=== PATIENT | male | born 1935 | race Caucasian/White ===

== ENCOUNTER 2017-05-31 11:13 | Inpatient (IN) ==
[2017-05-31 12:16] LABS: Basophils % 0.3 % (0.0-0.8); Eosinophils # 0.2 10*3/uL (0.0-0.87); Eosinophils % 2.7 % (0.00-10.9); Hematocrit 18.1 VOL% (42.0-52.0); Immature Granulocytes Absolute 0.12 #; Lymphocytes # 0.7 10*3/uL (1.4-4.0); Lymphocytes % 11.9 % (21.2-54.2); Mean Corpuscular Hemoglobin 32 PG (27-34); Mean Corpuscular Volume 99.5 FL (87-102); Mean Platelet Volume 11.2 FL (9.6-12.0); Monocytes # 0.6 10*3/uL (0.11-0.8); Monocytes % 9.7 % (1.7-12.7); Neutrophils # 4.3 10*3/uL (1.4-7.4); Neutrophils % 73.4 % (38.7-73.9); Platelet Count 102 T/CUMM (130-400); Red Blood Count 1.82 MC/CUMM (3.8-5.5); Red Cell Distribution Width 17.3 % (9.3-17.3); White Blood Count 5.9 T/CUMM (4-12)
[2017-05-31 12:43] LABS: Alanine Aminotransferase 37 U/L (16-61); Albumin 3.7 G/DL (3.4-5.0); Alkaline Phosphatase 99 U/L (45-117); Aspartate Amino Transferase 30 U/L (0-37); Bilirubin,Total < 0.39 MG/DL (0.2-1.0); Blood Urea Nitrogen 99 MG/DL (7-18); Calcium 7.1 MG/DL (8.5-10.1); Glucose 134 MG/DL (74-106); Osmolality,Calculated 315.1 MOS/KG (273-304); Potassium 4.4 MMOL/L (3.5-5.1); Sodium 142 MMOL/L (136-145); Total Protein 7.1 G/DL (6.4-8.3)
[2017-05-31 12:47] LABS: Hemoglobin 5.8 GM/DL (14.0-18.0)
[2017-05-31] MEDS ORDERED: PANTOPRAZOLE 40 MG VIAL IV STA (12:59)
[2017-05-31] MEDS ORDERED: SODIUM CHLORIDE 0.9% 1,000 ML IV SCH ×2 (13:00→14:00)
[2017-05-31] MEDS ORDERED: PANTOPRAZOLE 40 MG VIAL IV ONE (13:10)
[2017-05-31 13:29] LABS: Giant Platelets Few; Hypochromasia 1+; Ovalocytes Slight; Platelet Estimate Decreased
[2017-05-31] MEDS ORDERED: ONDANSETRON 4 MG/2 ML VIAL IV PRN (13:44)
[2017-05-31] MEDS ORDERED: diphenhydrAMINE CAP 25 MG CAPSULE PO PRN (13:44)
[2017-05-31] MEDS ORDERED: DOCUSATE SODIUM 100 MG CAPSULE PO PRN (13:44)
[2017-05-31] MEDS ORDERED: guaiFENesin/DM ER 600-30 MG TABLET PO PRN (13:44)
[2017-05-31] MEDS: PANTOPRAZOLE 40 MG VIAL IV SCH ×2 (14:00→20:47)
[2017-05-31] MEDS ORDERED: SODIUM CHLORIDE 0.9% 1,000 ML IV PRN (14:15)
[2017-05-31] MEDS ORDERED: SODIUM BICARBONATE 50 MEQ/50 ML VIAL IV ONE (16:15)
[2017-05-31 16:27] LABS: Fibrinogen Quant Value 311 MG% (200-400); INR 1.1; PT Patient Result 11.4 SECS; Partial Thromboplastin Time 36.4 SECS (0-40)
[2017-05-31 16:30] LABS: Basophils % 0.4 % (0.0-0.8); Eosinophils # 0.1 10*3/uL (0.0-0.87); Immature Granulocytes % 2.2 %; Immature Granulocytes Absolute 0.12 #; Lymphocytes # 0.7 10*3/uL (1.4-4.0); Lymphocytes % 12.6 % (21.2-54.2); Mean Corpuscular HGB Conc 31.3 GM/DL (32-36); Mean Corpuscular Hemoglobin 32 PG (27-34); Mean Corpuscular Volume 101.9 FL (87-102); Mean Platelet Volume 11.2 FL (9.6-12.0); Monocytes # 0.6 10*3/uL (0.11-0.8); Monocytes % 10.2 % (1.7-12.7); Neutrophils # 3.9 10*3/uL (1.4-7.4); Neutrophils % 72.6 % (38.7-73.9); Red Cell Distribution Width 17.7 % (9.3-17.3); White Blood Count 5.4 T/CUMM (4-12)
[2017-05-31] MEDS ORDERED: SODIUM BICARB INJ 100 MEQ in SODIUM CHLORIDE 0.45% 1,000 ML IV SCH (16:30)
[2017-05-31 16:31] LABS: Platelet Count 94 T/CUMM (130-400)
[2017-05-31 16:32] LABS: Hemoglobin 5.1 GM/DL (14.0-18.0)
[2017-05-31 16:33] LABS: Hematocrit 16.3 VOL% (42.0-52.0)
[2017-05-31 16:52] LABS: Anisocytosis 1+; Eosinophils 1 % (0-10); Lymphocytes 14 % (20-55); Schistocytes Few; Segmented Neutrophils 76 % (50-85); Total Cells Counted 100
[2017-05-31 16:53] LABS: Burr Cells Few; Elliptocytes Few; Platelet Estimate Decreased; Tear Drop Cells Few
[2017-05-31 16:54] LABS: Hypochromasia 2+; Poikilocytosis 1+
[2017-05-31 17:35] LABS: Sedimentation Rate-Westergren 87 MM/HR (0-20)
[2017-05-31 19:08] LABS: Folate 7.1 NG/ML (5.4-24.0); Vitamin B12 355 PG/ML (211-911)
[2017-05-31 22:00] LABS: Apearance,Urine Slightly Cloudy (Clear); Glucose,Urine (UA) 50 mg/dL (Negative); Ketones,Urine Negative (Negative); Protein,Urine 100 MG/DL; Urine Color Straw (Yellow)
[2017-05-31 22:01] LABS: Bilirubin,Urine Negative (Negative); Blood, Urine Large mg/dL (Negative); Nitrite,Urine Negative (Negative); Squamous Epithelial Cell,Urine Rare /HPF (0-10); Urine Urobilinogen 0.2 EU/DL (0.2-1.0); WBC,Urine 25-30 /HPF (0-6)
[2017-05-31 22:02] LABS: Bacteria,Urine Few /HPF (Few); Mucus,Urine Rare /LPF (Occasional)
[2017-06-01] MEDS: SODIUM BICARB INJ 150 MEQ in DEXTROSE 5% 1,000 ML IV SCH ×3 (01:46→08:41)
[2017-06-01 06:34] LABS: Basophils % 0.3 % (0.0-0.8); Eosinophils % 0.3 % (0.00-10.9); Hematocrit 23.6 VOL% (42.0-52.0); Hemoglobin 7.9 GM/DL (14.0-18.0); Immature Granulocytes % 1.2 %; Immature Granulocytes Absolute 0.08 #; Lymphocytes # 0.4 10*3/uL (1.4-4.0); Lymphocytes % 6.4 % (21.2-54.2); Mean Corpuscular HGB Conc 33.5 GM/DL (32-36); Mean Corpuscular Hemoglobin 31 PG (27-34); Mean Corpuscular Volume 92.2 FL (87-102); Mean Platelet Volume 10.8 FL (9.6-12.0); Monocytes # 0.6 10*3/uL (0.11-0.8); Monocytes % 8.8 % (1.7-12.7); Neutrophils # 5.6 10*3/uL (1.4-7.4); Red Blood Count 2.56 MC/CUMM (3.8-5.5); Red Cell Distribution Width 18.2 % (9.3-17.3); White Blood Count 6.7 T/CUMM (4-12)
[2017-06-01 06:42] LABS: Platelet Count 91 T/CUMM (130-400)
[2017-06-01 06:54] LABS: Hypochromasia 1+; Microcytosis 1+; Platelet Estimate Decreased; Spherocytes Slight
[2017-06-01 06:55] LABS: Ovalocytes Slight; Tear Drop Cells Slight
[2017-06-01 07:13] LABS: Albumin 3.7 G/DL (3.4-5.0); Bilirubin,Total 1.5 MG/DL (0.2-1.0); Calcium 7.3 MG/DL (8.5-10.1); Osmolality,Calculated 314.8 MOS/KG (273-304); Potassium 4.1 MMOL/L (3.5-5.1); Total Protein 6.6 G/DL (6.4-8.3)
[2017-06-01] MEDS: PANTOPRAZOLE 40 MG VIAL IV SCH ×2 (09:12→21:16)
[2017-06-01] MEDS ORDERED: LEVOFLOXACIN INJ 500 MG in PREMIX 1 EACH IV ONE (10:00)
[2017-06-01] MEDS: ALBUTEROL/IPRATROPIUM 3 ML NEB RESP TX SCH ×2 (11:33→19:54)
[2017-06-01] MEDS: MONTELUKAST 10 MG TABLET PO SCH (12:03)
[2017-06-02 05:25] LABS: Basophils % 0.2 % (0.0-0.8); Hematocrit 21.3 VOL% (42.0-52.0); Hemoglobin 7.1 GM/DL (14.0-18.0); Immature Granulocytes % 1.3 %; Immature Granulocytes Absolute 0.08 #; Lymphocytes # 0.4 10*3/uL (1.4-4.0); Lymphocytes % 6.2 % (21.2-54.2); Mean Corpuscular HGB Conc 33.3 GM/DL (32-36); Mean Corpuscular Hemoglobin 31 PG (27-34); Mean Corpuscular Volume 92.2 FL (87-102); Mean Platelet Volume 11.4 FL (9.6-12.0); Monocytes # 0.8 10*3/uL (0.11-0.8); Monocytes % 12.6 % (1.7-12.7); Neutrophils # 4.7 10*3/uL (1.4-7.4); Neutrophils % 79.7 % (38.7-73.9); Red Blood Count 2.31 MC/CUMM (3.8-5.5)
[2017-06-02 05:27] LABS: Platelet Count 85 T/CUMM (130-400)
[2017-06-02 05:32] LABS: INR 1.2; PT Patient Result 12.5 SECS
[2017-06-02 05:44] LABS: Elliptocytes Few; Hypochromasia 1+
[2017-06-02 05:45] LABS: Microcytosis Slight; Platelet Estimate Decreased
[2017-06-02 06:20] LABS: Osmolality,Calculated 319.4 MOS/KG (273-304); Potassium 3.9 MMOL/L (3.5-5.1)
[2017-06-02] MEDS: ALBUTEROL/IPRATROPIUM 3 ML NEB RESP TX SCH ×4 (07:17→19:18)
[2017-06-02] MEDS: PANTOPRAZOLE 40 MG VIAL IV SCH (09:27)
[2017-06-02] MEDS: MONTELUKAST 10 MG TABLET PO SCH (09:30)
[2017-06-02] MEDS ORDERED: SODIUM CHLORIDE 0.9% 1,000 ML IV PRN (12:12)
[2017-06-02] MEDS ORDERED: ZINC OXIDE PASTE 113 GM TUBE TOP PRN (13:13)
[2017-06-02] MEDS: ACETAMINOPHEN 325 MG TABLET PO PRN (16:21)
[2017-06-03] MEDS: PANTOPRAZOLE 40 MG VIAL IV SCH ×3 (00:07→21:15)
[2017-06-03] MEDS: ACETAMINOPHEN 325 MG TABLET PO PRN (00:09)
[2017-06-03] MEDS: ALBUTEROL/IPRATROPIUM 3 ML NEB RESP TX SCH ×4 (02:40→21:06)
[2017-06-03 06:32] LABS: Basophils % 0.3 % (0.0-0.8); Hematocrit 25.6 VOL% (42.0-52.0); Hemoglobin 8.4 GM/DL (14.0-18.0); Immature Granulocytes % 1.4 %; Lymphocytes # 0.5 10*3/uL (1.4-4.0); Lymphocytes % 6.4 % (21.2-54.2); Mean Corpuscular HGB Conc 32.8 GM/DL (32-36); Mean Corpuscular Hemoglobin 31 PG (27-34); Mean Corpuscular Volume 94.5 FL (87-102); Monocytes # 0.9 10*3/uL (0.11-0.8); Monocytes % 12.7 % (1.7-12.7); Neutrophils # 5.5 10*3/uL (1.4-7.4); Neutrophils % 79.2 % (38.7-73.9); Platelet Count 85 T/CUMM (130-400); Red Blood Count 2.71 MC/CUMM (3.8-5.5); Red Cell Distribution Width 18.3 % (9.3-17.3)
[2017-06-03 06:51] LABS: Giant Platelets Few; Hypochromasia 1+; Ovalocytes Slight; Platelet Estimate Decreased
[2017-06-03 06:52] LABS: Burr Cells Slight; Microcytosis Slight
[2017-06-03 07:02] LABS: Calcium 7.2 MG/DL (8.5-10.1); Osmolality,Calculated 321.4 MOS/KG (273-304); Potassium 3.7 MMOL/L (3.5-5.1)
[2017-06-03] MEDS ORDERED: ACETAMINOPHEN 1,000 MG/100 ML VIAL IV ONE (08:04)
[2017-06-03] MEDS ORDERED: AMINOPHYLLINE 250 MG in SODIUM CHLORIDE 0.9% 100 ML IV ONE (08:50)
[2017-06-03] MEDS: MONTELUKAST 10 MG TABLET PO SCH (12:35)
[2017-06-03] MEDS: LEVOFLOXACIN INJ 250 MG in PREMIX 1 EACH IV SCH (12:42)
[2017-06-03] MEDS ORDERED: ALBUTEROL 2.5 MG/3 ML NEB RESP TX PRN (13:42)
[2017-06-03] MEDS ORDERED: ALBUTEROL 2.5 MG/3 ML NEB RESP TX ONE (13:42)
[2017-06-03] MEDS: AMINOPHYLLINE 500 MG in SODIUM CHLORIDE 0.9% 480 ML IV SCH (13:53)
[2017-06-03] MEDS: DILTIAZEM CD 120 MG CAPSULE PO SCH (16:35)
[2017-06-03 17:22] LABS: Hepatitis A Ab IgM Quant 0.13 Index; Hepatitis A Ab IgM Result Negative (Negative); Hepatitis B Core IgM Quant 0.11 Index; Hepatitis B Core IgM Result Negative (Negative); Hepatitis B Surface Ag Quant < 0.10 Index; Hepatitis B Surface Ag Result Negative (Negative); Hepatitis C Virus Ab Quant 0.05 Index; Hepatitis C Virus Ab Result Negative (Negative)
[2017-06-03] MEDS: ZIPRASIDONE 20 MG/1 ML VIAL IM PRN (23:37)
[2017-06-04] MEDS ORDERED: ACETAMINOPHEN 650 MG SUPP RECTAL PRN (03:18)
[2017-06-04 06:07] LABS: Basophils % 0.3 % (0.0-0.8); Eosinophils % 0.2 % (0.00-10.9); Hematocrit 25.7 VOL% (42.0-52.0); Hemoglobin 8.6 GM/DL (14.0-18.0); Immature Granulocytes Absolute 0.06 #; Lymphocytes # 0.4 10*3/uL (1.4-4.0); Lymphocytes % 7.1 % (21.2-54.2); Mean Corpuscular HGB Conc 33.5 GM/DL (32-36); Mean Corpuscular Hemoglobin 31 PG (27-34); Mean Corpuscular Volume 91.8 FL (87-102); Mean Platelet Volume 11.5 FL (9.6-12.0); Monocytes # 0.6 10*3/uL (0.11-0.8); Monocytes % 9.6 % (1.7-12.7); Neutrophils # 4.9 10*3/uL (1.4-7.4); Neutrophils % 81.8 % (38.7-73.9); Red Cell Distribution Width 18.2 % (9.3-17.3)
[2017-06-04 06:11] LABS: Platelet Count 83 T/CUMM (130-400)
[2017-06-04 06:37] LABS: Burr Cells Slight; Giant Platelets Few; Hypochromasia 1+; Microcytosis Slight; Ovalocytes Slight; Platelet Estimate Decreased
[2017-06-04 06:40] LABS: Osmolality,Calculated 301.7 MOS/KG (273-304); Potassium 3.4 MMOL/L (3.5-5.1)
[2017-06-04] MEDS: ALBUTEROL/IPRATROPIUM 3 ML NEB RESP TX SCH ×4 (07:39→20:15)
[2017-06-04] MEDS: PANTOPRAZOLE 40 MG VIAL IV SCH ×2 (09:02→20:38)
[2017-06-04] MEDS: DILTIAZEM CD 120 MG CAPSULE PO SCH ×2 (09:23→20:40)
[2017-06-04] MEDS ORDERED: DILTIAZEM 50 MG/10 ML VIAL IV ONE (09:29)
[2017-06-04] MEDS ORDERED: DILTIAZEM 90 MG TABLET PO ONE (10:12)
[2017-06-04] MEDS ORDERED: LIDOCAINE 2% 5 ML VIAL ONE (11:45)
[2017-06-04] MEDS ORDERED: ETOMIDATE 20 MG/10 ML VIAL IV ONE (11:45)
[2017-06-04] MEDS: MONTELUKAST 10 MG TABLET PO SCH (11:54)
[2017-06-04] MEDS: ATORVASTATIN 10 MG TABLET PO SCH (11:54)
[2017-06-04 14:33] LABS: Procalcitonin, S 1.5 ng/mL (<=0.15)
[2017-06-04] MEDS: ZIPRASIDONE 20 MG/1 ML VIAL IM PRN (18:04)
[2017-06-05] MEDS: ALBUTEROL/IPRATROPIUM 3 ML NEB RESP TX SCH ×4 (01:42→20:22)
[2017-06-05] MEDS: AMINOPHYLLINE 500 MG in SODIUM CHLORIDE 0.9% 480 ML IV SCH ×2 (04:44→13:21)
[2017-06-05] MEDS: ZIPRASIDONE 20 MG/1 ML VIAL IM PRN ×2 (06:05→21:11)
[2017-06-05 06:33] LABS: Basophils % 0.5 % (0.0-0.8); Eosinophils % 0.6 % (0.00-10.9); Hematocrit 26.5 VOL% (42.0-52.0); Hemoglobin 8.7 GM/DL (14.0-18.0); Immature Granulocytes % 1.3 %; Immature Granulocytes Absolute 0.08 #; Lymphocytes # 0.7 10*3/uL (1.4-4.0); Lymphocytes % 10.7 % (21.2-54.2); Mean Corpuscular HGB Conc 32.8 GM/DL (32-36); Mean Corpuscular Hemoglobin 31 PG (27-34); Mean Corpuscular Volume 93.3 FL (87-102); Mean Platelet Volume 11.1 FL (9.6-12.0); Monocytes # 0.8 10*3/uL (0.11-0.8); Monocytes % 12.7 % (1.7-12.7); Neutrophils # 4.7 10*3/uL (1.4-7.4); Neutrophils % 74.2 % (38.7-73.9); Platelet Count 85 T/CUMM (130-400); Red Blood Count 2.84 MC/CUMM (3.8-5.5); Red Cell Distribution Width 18.1 % (9.3-17.3); White Blood Count 6.4 T/CUMM (4-12)
[2017-06-05 06:59] LABS: Calcium 7.9 MG/DL (8.5-10.1); Osmolality,Calculated 291.1 MOS/KG (273-304); Potassium 3.5 MMOL/L (3.5-5.1)
[2017-06-05 07:05] LABS: Hypochromasia 2+; Microcytosis 2+
[2017-06-05] MEDS: DILTIAZEM CD 120 MG CAPSULE PO SCH ×3 (08:20→20:18)
[2017-06-05] MEDS: ATORVASTATIN 10 MG TABLET PO SCH (08:21)
[2017-06-05] MEDS: LEVOFLOXACIN INJ 250 MG in PREMIX 1 EACH IV SCH (08:21)
[2017-06-05] MEDS: PANTOPRAZOLE 40 MG VIAL IV SCH ×2 (08:21→20:53)
[2017-06-05] MEDS: MONTELUKAST 10 MG TABLET PO SCH (08:21)
[2017-06-05] MEDS ORDERED: HEPARIN 10,000 UNIT/10 ML VIAL IV PRN (13:46)
[2017-06-05] MEDS: cefTAZidime 500 MG in SYRINGE 1 EACH IV SCH (17:30)
[2017-06-05 23:03] LABS: Calcium 7.8 MG/DL (8.5-10.1); Osmolality,Calculated 280.5 MOS/KG (273-304); Potassium 3.3 MMOL/L (3.5-5.1)
[2017-06-06] MEDS ORDERED: POTASSIUM CHLORIDE 20 MEQ/15 ML UDCUP PO PRN (00:02)
[2017-06-06] MEDS: ALBUTEROL/IPRATROPIUM 3 ML NEB RESP TX SCH ×4 (01:00→20:15)
[2017-06-06 04:12] LABS: Basophils % 0.4 % (0.0-0.8); Eosinophils # 0.2 10*3/uL (0.0-0.87); Eosinophils % 3.2 % (0.00-10.9); Hematocrit 25.4 VOL% (42.0-52.0); Hemoglobin 8.5 GM/DL (14.0-18.0); Immature Granulocytes % 0.7 %; Immature Granulocytes Absolute 0.04 #; Lymphocytes # 0.7 10*3/uL (1.4-4.0); Lymphocytes % 11.6 % (21.2-54.2); Mean Corpuscular HGB Conc 33.5 GM/DL (32-36); Mean Corpuscular Hemoglobin 30 PG (27-34); Mean Corpuscular Volume 90.7 FL (87-102); Mean Platelet Volume 10.3 FL (9.6-12.0); Monocytes # 0.7 10*3/uL (0.11-0.8); Neutrophils # 4.1 10*3/uL (1.4-7.4); Neutrophils % 72.1 % (38.7-73.9); Platelet Count 83 T/CUMM (130-400); Red Cell Distribution Width 17.3 % (9.3-17.3); White Blood Count 5.7 T/CUMM (4-12)
[2017-06-06 04:52] LABS: Calcium 7.7 MG/DL (8.5-10.1); Osmolality,Calculated 284.4 MOS/KG (273-304); Potassium 3.3 MMOL/L (3.5-5.1)
[2017-06-06 05:55] LABS: Eosinophils 4 % (0-10); Hypochromasia 1+; Lymphocytes 9 % (20-55); Microcytosis 1+; Segmented Neutrophils 76 % (50-85); Total Cells Counted 100
[2017-06-06 05:56] LABS: Ovalocytes Slight; Platelet Estimate Decreased; Tear Drop Cells Slight
[2017-06-06] MEDS: PANTOPRAZOLE 40 MG VIAL IV SCH ×2 (09:42→20:04)
[2017-06-06] MEDS: DILTIAZEM CD 120 MG CAPSULE PO SCH ×2 (09:42→20:03)
[2017-06-06] MEDS: ATORVASTATIN 10 MG TABLET PO SCH (09:42)
[2017-06-06] MEDS: MONTELUKAST 10 MG TABLET PO SCH (09:42)
[2017-06-06] MEDS: AMINOPHYLLINE 500 MG in SODIUM CHLORIDE 0.9% 480 ML IV SCH (13:28)
[2017-06-06] MEDS: ACETAMINOPHEN 325 MG TABLET PO PRN (17:29)
[2017-06-06] MEDS: cefTAZidime 500 MG in SYRINGE 1 EACH IV SCH (17:30)
[2017-06-06] MEDS: ZIPRASIDONE 20 MG/1 ML VIAL IM PRN (20:06)
[2017-06-07] MEDS: ALBUTEROL/IPRATROPIUM 3 ML NEB RESP TX SCH ×4 (01:52→19:19)
[2017-06-07 04:13] LABS: Basophils % 0.6 % (0.0-0.8); Eosinophils # 0.2 10*3/uL (0.0-0.87); Eosinophils % 3.6 % (0.00-10.9); Hemoglobin 9.1 GM/DL (14.0-18.0); Immature Granulocytes % 1.1 %; Immature Granulocytes Absolute 0.06 #; Lymphocytes # 0.7 10*3/uL (1.4-4.0); Lymphocytes % 14.1 % (21.2-54.2); Mean Corpuscular HGB Conc 33.7 GM/DL (32-36); Mean Corpuscular Hemoglobin 31 PG (27-34); Mean Corpuscular Volume 90.6 FL (87-102); Monocytes # 0.5 10*3/uL (0.11-0.8); Monocytes % 9.7 % (1.7-12.7); Neutrophils # 3.7 10*3/uL (1.4-7.4); Neutrophils % 70.9 % (38.7-73.9); Platelet Count 102 T/CUMM (130-400); Red Blood Count 2.98 MC/CUMM (3.8-5.5); Red Cell Distribution Width 17.1 % (9.3-17.3); White Blood Count 5.2 T/CUMM (4-12)
[2017-06-07 04:30] LABS: Calcium 7.7 MG/DL (8.5-10.1); Osmolality,Calculated 291.4 MOS/KG (273-304); Potassium 3.5 MMOL/L (3.5-5.1)
[2017-06-07] MEDS: DILTIAZEM CD 120 MG CAPSULE PO SCH ×2 (08:53→21:55)
[2017-06-07] MEDS: LEVOFLOXACIN INJ 250 MG in PREMIX 1 EACH IV SCH (08:53)
[2017-06-07] MEDS: ACETAMINOPHEN 325 MG TABLET PO PRN (08:54)
[2017-06-07] MEDS: MONTELUKAST 10 MG TABLET PO SCH (08:54)
[2017-06-07] MEDS: ATORVASTATIN 10 MG TABLET PO SCH (08:54)
[2017-06-07] MEDS: PANTOPRAZOLE 40 MG VIAL IV SCH ×2 (08:54→21:57)
[2017-06-07] MEDS: AMINOPHYLLINE 500 MG in SODIUM CHLORIDE 0.9% 480 ML IV SCH (12:42)
[2017-06-07] MEDS: cefTAZidime 500 MG in SYRINGE 1 EACH IV SCH (16:38)
[2017-06-07] MEDS: ZIPRASIDONE 20 MG/1 ML VIAL IM PRN (21:57)
[2017-06-08] MEDS: ZIPRASIDONE 20 MG/1 ML VIAL IM PRN ×2 (03:35→21:43)
[2017-06-08] MEDS ORDERED: METOPROLOL TARTRATE 5 MG/5 ML VIAL IV PRN (04:20)
[2017-06-08] MEDS ORDERED: METOPROLOL TARTRATE 5 MG/5 ML VIAL IV SCH (04:30)
[2017-06-08 05:25] LABS: Basophils % 0.5 % (0.0-0.8); Eosinophils # 0.2 10*3/uL (0.0-0.87); Eosinophils % 3.1 % (0.00-10.9); Hematocrit 30.5 VOL% (42.0-52.0); Hemoglobin 10.4 GM/DL (14.0-18.0); Immature Granulocytes % 1.6 %; Lymphocytes # 0.6 10*3/uL (1.4-4.0); Lymphocytes % 9.9 % (21.2-54.2); Mean Corpuscular HGB Conc 34.1 GM/DL (32-36); Mean Corpuscular Hemoglobin 30 PG (27-34); Mean Corpuscular Volume 89.2 FL (87-102); Mean Platelet Volume 12.4 FL (9.6-12.0); Monocytes # 0.6 10*3/uL (0.11-0.8); Monocytes % 10.2 % (1.7-12.7); Neutrophils # 4.6 10*3/uL (1.4-7.4); Neutrophils % 74.7 % (38.7-73.9); Platelet Count 112 T/CUMM (130-400); Red Blood Count 3.42 MC/CUMM (3.8-5.5); Red Cell Distribution Width 16.5 % (9.3-17.3); White Blood Count 6.2 T/CUMM (4-12)
[2017-06-08 05:49] LABS: Calcium 7.5 MG/DL (8.5-10.1); Osmolality,Calculated 293.5 MOS/KG (273-304); Potassium 3.6 MMOL/L (3.5-5.1)
[2017-06-08] MEDS: ALBUTEROL/IPRATROPIUM 3 ML NEB RESP TX SCH ×3 (07:23→19:46)
[2017-06-08] MEDS: PANTOPRAZOLE 40 MG VIAL IV SCH (08:28)
[2017-06-08] MEDS: MONTELUKAST 10 MG TABLET PO SCH (08:29)
[2017-06-08] MEDS: DILTIAZEM CD 120 MG CAPSULE PO SCH ×2 (08:29→21:04)
[2017-06-08] MEDS: ATORVASTATIN 10 MG TABLET PO SCH (08:29)
[2017-06-08] MEDS ORDERED: HEPARIN 5,000 UNIT/1 ML VIAL ONE (10:18)
[2017-06-08] MEDS: SODIUM CHLORIDE 0.9% 250 ML IV SCH (11:11)
[2017-06-08] MEDS ORDERED: PROPOFOL 200 MG/20 ML VIAL IV ONE (12:18)
[2017-06-08] MEDS ORDERED: SODIUM CHLORIDE 0.9% 100 ML IV ONE (12:19)
[2017-06-08] MEDS ORDERED: TUBERCULIN SKIN TEST 0.1 ML SYRINGE INTRADERM ONE (16:15)
[2017-06-08] MEDS: cefTAZidime 500 MG in SYRINGE 1 EACH IV SCH (17:58)
[2017-06-08] MEDS: PANTOPRAZOLE 40 MG TABLET PO SCH (21:04)
[2017-06-09] MEDS: ALBUTEROL/IPRATROPIUM 3 ML NEB RESP TX SCH ×4 (00:31→20:06)
[2017-06-09] MEDS: SODIUM CHLORIDE 0.9% 250 ML IV SCH ×2 (01:05→12:21)
[2017-06-09] MEDS: AMINOPHYLLINE 500 MG in SODIUM CHLORIDE 0.9% 480 ML IV SCH (08:06)
[2017-06-09] MEDS: DILTIAZEM CD 120 MG CAPSULE PO SCH ×2 (08:40→21:08)
[2017-06-09] MEDS: MONTELUKAST 10 MG TABLET PO SCH (08:40)
[2017-06-09] MEDS: ATORVASTATIN 10 MG TABLET PO SCH (08:40)
[2017-06-09] MEDS: LEVOFLOXACIN INJ 250 MG in PREMIX 1 EACH IV SCH (08:40)
[2017-06-09] MEDS: PANTOPRAZOLE 40 MG TABLET PO SCH ×2 (08:40→21:10)
[2017-06-09] MEDS: THEOPHYLLINE ER (24 HR) 200 MG CAPSULE PO SCH ×2 (12:16→17:49)
[2017-06-09] MEDS: cefTAZidime 500 MG in SYRINGE 1 EACH IV SCH (17:40)
[2017-06-10] MEDS: ZIPRASIDONE 20 MG/1 ML VIAL IM PRN (01:30)
[2017-06-10] MEDS: ALBUTEROL/IPRATROPIUM 3 ML NEB RESP TX SCH ×3 (06:13→07:45)
[2017-06-10] MEDS: SODIUM CHLORIDE 0.9% 250 ML IV SCH (08:52)
[2017-06-10] MEDS: PANTOPRAZOLE 40 MG TABLET PO SCH (09:00)
[2017-06-10] MEDS ORDERED: TAMSULOSIN 0.4 MG CAPSULE PO SCH (09:00)
[2017-06-10] MEDS: DILTIAZEM CD 120 MG CAPSULE PO SCH (09:00)
[2017-06-10] MEDS: THEOPHYLLINE ER (24 HR) 200 MG CAPSULE PO SCH (09:00)
[2017-06-10] MEDS: ATORVASTATIN 10 MG TABLET PO SCH (09:00)
[2017-06-10] MEDS: MONTELUKAST 10 MG TABLET PO SCH (09:00)
[2017-06-10 11:19] VITALS: BP 144/69
== END 2017-06-10 11:10 | DRG 682 ==
LOC: N.ED 11:13 → N.EDINP 13:03 → SUATTDRO 13:03 → N.EDINP 14:30 → N.3E 14:46
PROVIDERS: ADMIT Pediatrics; ATTEND Hospitalist

== ENCOUNTER 2017-06-11 19:50 | Inpatient (IN) ==
[2017-06-11 21:07] LABS: Basophils % 0.5 % (0.0-0.8); Eosinophils # 0.1 10*3/uL (0.0-0.87); Eosinophils % 0.8 % (0.00-10.9); Hematocrit 27.5 VOL% (42.0-52.0); Hemoglobin 9.3 GM/DL (14.0-18.0); Immature Granulocytes Absolute 0.06 #; Lymphocytes # 0.5 10*3/uL (1.4-4.0); Lymphocytes % 7.9 % (21.2-54.2); Mean Corpuscular HGB Conc 33.8 GM/DL (32-36); Mean Corpuscular Hemoglobin 30 PG (27-34); Mean Corpuscular Volume 89.9 FL (87-102); Mean Platelet Volume 11.9 FL (9.6-12.0); Monocytes # 0.7 10*3/uL (0.11-0.8); Monocytes % 11.9 % (1.7-12.7); Neutrophils # 4.7 10*3/uL (1.4-7.4); Neutrophils % 77.9 % (38.7-73.9); Platelet Count 149 T/CUMM (130-400); Red Blood Count 3.06 MC/CUMM (3.8-5.5); Red Cell Distribution Width 15.7 % (9.3-17.3); White Blood Count 6.1 T/CUMM (4-12)
[2017-06-11 21:20] LABS: Calcium 7.8 MG/DL (8.5-10.1); Osmolality,Calculated 276.8 MOS/KG (273-304); Potassium 3.1 MMOL/L (3.5-5.1); Troponin I Only 0.018 NG/ML (0.00-0.045)
[2017-06-11] MEDS ORDERED: SODIUM CHLORIDE 0.9% 250 ML IV STA (22:52)
[2017-06-12] MEDS ORDERED: POTASSIUM CHLORIDE 20 MEQ TABLET PO ONE ×3 (01:14→02:18)
[2017-06-12] MEDS ORDERED: CALCIUM GLUCONATE 1,000 MG in SODIUM CHLORIDE 0.9% 100 ML IV ONE (01:14)
[2017-06-12] MEDS ORDERED: ONDANSETRON 4 MG/2 ML VIAL IV PRN (01:14)
[2017-06-12] MEDS ORDERED: CALCIUM GLUCONATE 1,000 MG/10 ML VIAL IV ONE (02:16)
[2017-06-12] MEDS: AMOXICILLIN/CLAV ES 600 125 ML/BOTTLE PO SCH ×3 (03:03→22:35)
[2017-06-12 03:34] LABS: Hematocrit 27.2 VOL% (42.0-52.0); Hemoglobin 9.1 GM/DL (14.0-18.0)
[2017-06-12 08:11] LABS: Hematocrit 25.7 VOL% (42.0-52.0); Hemoglobin 8.5 GM/DL (14.0-18.0)
[2017-06-12 08:32] LABS: Magnesium 1.9 MG/DL (1.8-2.4); Osmolality,Calculated 279.5 MOS/KG (273-304); Potassium 3.4 MMOL/L (3.5-5.1)
[2017-06-12] MEDS ORDERED: DOCUSATE SODIUM 100 MG CAPSULE ONE (10:22)
[2017-06-12] MEDS ORDERED: PANTOPRAZOLE 40 MG VIAL IV ONE (10:22)
[2017-06-12] MEDS ORDERED: PANTOPRAZOLE 40 MG TABLET PO ONE (10:23)
[2017-06-12] MEDS: DOCUSATE SODIUM 100 MG CAPSULE PO SCH ×2 (12:29→22:03)
[2017-06-12] MEDS: PANTOPRAZOLE 40 MG VIAL IV SCH (12:29)
[2017-06-12 23:51] LABS: Hematocrit 24.4 VOL% (42.0-52.0); Hemoglobin 8.1 GM/DL (14.0-18.0)
[2017-06-13 08:02] LABS: Hematocrit 24.8 VOL% (42.0-52.0)
[2017-06-13] MEDS ORDERED: HEPARIN 10,000 UNIT/10 ML VIAL IV SCH (11:30)
[2017-06-13] MEDS: THEOPHYLLINE ER (24 HR) 400 MG TABLET PO SCH (13:36)
[2017-06-13] MEDS: DOCUSATE SODIUM 100 MG CAPSULE PO SCH ×2 (13:36→20:36)
[2017-06-13] MEDS: PANTOPRAZOLE 40 MG VIAL IV SCH (13:36)
[2017-06-13] MEDS: AMOXICILLIN/CLAV ES 600 125 ML/BOTTLE PO SCH ×2 (15:08→20:36)
[2017-06-13] MEDS: TAMSULOSIN 0.4 MG CAPSULE PO SCH (20:36)
[2017-06-14] MEDS ORDERED: LEVOTHYROXINE 112 MCG TABLET PO SCH (06:00)
[2017-06-14 06:21] LABS: Basophils % 0.7 % (0.0-0.8); Eosinophils # 0.2 10*3/uL (0.0-0.87); Eosinophils % 3.1 % (0.00-10.9); Hemoglobin 8.1 GM/DL (14.0-18.0); Immature Granulocytes % 0.7 %; Immature Granulocytes Absolute 0.04 #; Lymphocytes # 1.1 10*3/uL (1.4-4.0); Lymphocytes % 20.6 % (21.2-54.2); Mean Corpuscular HGB Conc 32.4 GM/DL (32-36); Mean Corpuscular Hemoglobin 30 PG (27-34); Mean Corpuscular Volume 92.6 FL (87-102); Mean Platelet Volume 11.5 FL (9.6-12.0); Monocytes # 0.9 10*3/uL (0.11-0.8); Monocytes % 16.8 % (1.7-12.7); Neutrophils # 3.2 10*3/uL (1.4-7.4); Neutrophils % 58.1 % (38.7-73.9); Platelet Count 172 T/CUMM (130-400); Red Cell Distribution Width 15.8 % (9.3-17.3); White Blood Count 5.5 T/CUMM (4-12)
[2017-06-14 06:38] LABS: Albumin 2.5 G/DL (3.4-5.0); Calcium 8.3 MG/DL (8.5-10.1); Osmolality,Calculated 280.8 MOS/KG (273-304); Potassium 3.4 MMOL/L (3.5-5.1)
[2017-06-14] MEDS ORDERED: ATORVASTATIN 10 MG TABLET PO SCH (09:00)
[2017-06-14] MEDS ORDERED: CHOLECALCIFEROL 1,000 UNIT TABLET PO SCH (09:00)
[2017-06-14] MEDS ORDERED: MONTELUKAST 10 MG TABLET PO SCH (09:00)
[2017-06-14 09:23] LABS: Band Neutrophils 1 % (0-10); Eosinophils 4 % (0-10); Hypochromasia 1+; Lymphocytes 19 % (20-55); Nucleated Red Blood Cells 1 (0-5); Platelet Estimate Normal; Segmented Neutrophils 64 % (50-85); Total Cells Counted 100
[2017-06-14 09:24] LABS: Microcytosis Slight; Tear Drop Cells Slight
[2017-06-14] MEDS: AMOXICILLIN/CLAV ES 600 125 ML/BOTTLE PO SCH (09:56)
[2017-06-14] MEDS: PANTOPRAZOLE 40 MG VIAL IV SCH (09:56)
[2017-06-14] MEDS: THEOPHYLLINE ER (24 HR) 400 MG TABLET PO SCH (09:56)
[2017-06-14] MEDS: DOCUSATE SODIUM 100 MG CAPSULE PO SCH (09:58)
[2017-06-14] MEDS: TAMSULOSIN 0.4 MG CAPSULE PO SCH (09:58)
[2017-06-14 12:25] VITALS: BP 120/71
== END 2017-06-14 16:02 | DRG 312 ==
LOC: EDBD → EDUNIT# → N.ED 19:50 → N.EDINP 06-12 00:08 → SUATTDRO 06-12 00:08 → N.5E 06-12 13:44
PROVIDERS: ADMIT Internal Medicine; ATTEND Pediatrics

== ENCOUNTER 2017-07-04 09:12 | Inpatient (IN) ==
[2017-07-04 09:55] LABS: Basophils % 0.4 % (0.0-0.8); Eosinophils # 0.3 10*3/uL (0.0-0.87); Eosinophils % 5.1 % (0.00-10.9); Hematocrit 21.7 VOL% (42.0-52.0); Hemoglobin 7.2 GM/DL (14.0-18.0); Immature Granulocytes % 0.7 %; Immature Granulocytes Absolute 0.04 #; Lymphocytes % 16.7 % (21.2-54.2); Mean Corpuscular HGB Conc 33.2 GM/DL (32-36); Mean Corpuscular Hemoglobin 31 PG (27-34); Mean Corpuscular Volume 93.5 FL (87-102); Mean Platelet Volume 11.3 FL (9.6-12.0); Monocytes # 0.7 10*3/uL (0.11-0.8); Monocytes % 11.8 % (1.7-12.7); Neutrophils # 3.7 10*3/uL (1.4-7.4); Neutrophils % 65.3 % (38.7-73.9); Platelet Count 128 T/CUMM (130-400); Red Blood Count 2.32 MC/CUMM (3.8-5.5); Red Cell Distribution Width 15.4 % (9.3-17.3); White Blood Count 5.7 T/CUMM (4-12)
[2017-07-04 10:13] LABS: PT Patient Result 10.3 SECS; Partial Thromboplastin Time 31.9 SECS (0-40)
[2017-07-04 10:38] LABS: Blood Urea Nitrogen 44 MG/DL (7-18); Calcium 7.7 MG/DL (8.5-10.1); Glucose 125 MG/DL (74-106); Osmolality,Calculated 281.1 MOS/KG (273-304); Potassium 3.1 MMOL/L (3.5-5.1); Sodium 135 MMOL/L (136-145); Troponin I Only < 0.015 NG/ML (0.00-0.045)
[2017-07-04] MEDS ORDERED: ONDANSETRON 4 MG/2 ML VIAL IV PRN (11:30)
[2017-07-04] MEDS ORDERED: ACETAMINOPHEN 325 MG TABLET PO PRN (11:30)
[2017-07-04] MEDS ORDERED: DEXTROSE 50% 25 GM/50 ML VIAL IV PRN (11:30)
[2017-07-04] MEDS ORDERED: GLUCAGON 1 MG VIAL IM PRN (11:30)
[2017-07-04] MEDS ORDERED: SODIUM CHLORIDE 0.9% 1,000 ML IV PRN (11:32)
[2017-07-04] MEDS ORDERED: diphenhydrAMINE CAP 25 MG CAPSULE PO PRN (12:35)
[2017-07-04] MEDS ORDERED: ZINC OXIDE PASTE 113 GM TUBE TOP PRN (12:35)
[2017-07-04] MEDS ORDERED: DOCUSATE SODIUM 100 MG CAPSULE PO PRN (12:35)
[2017-07-04] MEDS: INSULIN LISPRO 100 UNIT/ML SUBCUT SCH ×3 (13:07→21:48)
[2017-07-04] MEDS ORDERED: EPOETIN ALFA 10,000 UNIT/1 ML VIAL IV PRN (13:11)
[2017-07-04] MEDS ORDERED: HEPARIN 10,000 UNIT/10 ML VIAL IV PRN (13:24)
[2017-07-04] MEDS ORDERED: IRON SUCROSE 100 MG/5 ML VIAL IV SCH (13:30)
[2017-07-04] MEDS ORDERED: IRON SUCROSE 100 MG/5 ML VIAL IV PRN (16:00)
[2017-07-04] MEDS: DILTIAZEM 60 MG TABLET PO SCH (21:48)
[2017-07-04] MEDS: TAMSULOSIN 0.4 MG CAPSULE PO SCH (21:48)
[2017-07-05] MEDS ORDERED: LEVOTHYROXINE 112 MCG TABLET PO SCH (06:00)
[2017-07-05 06:02] LABS: Basophils % 0.6 % (0.0-0.8); Eosinophils # 0.3 10*3/uL (0.0-0.87); Eosinophils % 5.8 % (0.00-10.9); Hematocrit 26.1 VOL% (42.0-52.0); Hemoglobin 9.1 GM/DL (14.0-18.0); Immature Granulocytes % 1.2 %; Immature Granulocytes Absolute 0.06 #; Lymphocytes % 20.4 % (21.2-54.2); Mean Corpuscular HGB Conc 34.9 GM/DL (32-36); Mean Corpuscular Hemoglobin 31 PG (27-34); Mean Corpuscular Volume 89.4 FL (87-102); Mean Platelet Volume 11.4 FL (9.6-12.0); Monocytes # 0.6 10*3/uL (0.11-0.8); Monocytes % 13.1 % (1.7-12.7); Neutrophils # 2.8 10*3/uL (1.4-7.4); Neutrophils % 58.9 % (38.7-73.9); Platelet Count 120 T/CUMM (130-400); Red Blood Count 2.92 MC/CUMM (3.8-5.5); Red Cell Distribution Width 15.7 % (9.3-17.3); White Blood Count 4.8 T/CUMM (4-12)
[2017-07-05 06:07] LABS: Basophils % 0.6 % (0.0-0.8); Eosinophils # 0.3 10*3/uL (0.0-0.87); Eosinophils % 6.7 % (0.00-10.9); Hematocrit 26.8 VOL% (42.0-52.0); Hemoglobin 8.9 GM/DL (14.0-18.0); Immature Granulocytes Absolute 0.05 #; Lymphocytes # 0.9 10*3/uL (1.4-4.0); Lymphocytes % 19.5 % (21.2-54.2); Mean Corpuscular HGB Conc 33.2 GM/DL (32-36); Mean Corpuscular Hemoglobin 31 PG (27-34); Mean Corpuscular Volume 92.1 FL (87-102); Mean Platelet Volume 10.8 FL (9.6-12.0); Monocytes # 0.7 10*3/uL (0.11-0.8); Monocytes % 13.6 % (1.7-12.7); Neutrophils # 2.8 10*3/uL (1.4-7.4); Neutrophils % 58.6 % (38.7-73.9); Platelet Count 119 T/CUMM (130-400); Red Blood Count 2.91 MC/CUMM (3.8-5.5); Red Cell Distribution Width 15.4 % (9.3-17.3); White Blood Count 4.8 T/CUMM (4-12)
[2017-07-05 06:39] LABS: Calcium 8.2 MG/DL (8.5-10.1); Osmolality,Calculated 279.5 MOS/KG (273-304); Potassium 3.5 MMOL/L (3.5-5.1)
[2017-07-05 06:40] LABS: Folate 9.6 NG/ML (5.4-24.0); Vitamin B12 373 PG/ML (211-911)
[2017-07-05 06:52] LABS: % Iron Saturation 59.7 % (18-50); Ferritin 487.7 ng/ml (26-388)
[2017-07-05] MEDS: TAMSULOSIN 0.4 MG CAPSULE PO SCH (08:23)
[2017-07-05] MEDS: DILTIAZEM 60 MG TABLET PO SCH (08:24)
[2017-07-05] MEDS ORDERED: FINASTERIDE 5 MG TABLET PO SCH (09:00)
[2017-07-05] MEDS ORDERED: ATORVASTATIN 10 MG TABLET PO SCH (09:00)
[2017-07-05] MEDS ORDERED: THEOPHYLLINE ER (24 HR) 400 MG TABLET PO SCH (09:00)
[2017-07-05] MEDS ORDERED: MONTELUKAST 10 MG TABLET PO SCH (09:00)
[2017-07-05] MEDS ORDERED: CHOLECALCIFEROL 1,000 UNIT TABLET PO SCH (09:00)
[2017-07-05] MEDS ORDERED: PANTOPRAZOLE 40 MG TABLET PO SCH (09:00)
[2017-07-05] MEDS ORDERED: amLODIPine 5 MG TABLET PO SCH (09:00)
[2017-07-05] MEDS: INSULIN LISPRO 100 UNIT/ML SUBCUT SCH ×2 (10:50→14:00)
[2017-07-05 10:59] LABS: Sedimentation Rate-Westergren 73 MM/HR (0-20)
[2017-07-05 15:49] VITALS: BP 109/53
[2017-07-06 08:50] LABS: Hemoglobin A1 (Alkaline) 97.5 % (96.5-98.5); Hemoglobin A2 (Alkaline) 2.5 % (1.5-3.5)
== END 2017-07-05 17:30 | DRG 682 ==
LOC: EDBD → EDUNIT# → N.ED 09:12 → N.EDINP 10:51 → N.2E 11:32
PROVIDERS: ADMIT Hospitalist; ATTEND Hospitalist

== ENCOUNTER 2019-06-04 13:36 | Observation (INO) ==
[2019-06-04 15:11] LABS: Basophils % 0.6 % (0.0-0.8); Eosinophils # 0.1 10*3/uL (0.0-0.87); Eosinophils % 2.5 % (0.00-10.9); Hematocrit 29.5 VOL% (42.0-52.0); Immature Granulocytes % 0.3 %; Immature Granulocytes Absolute 0.01 #; Lymphocytes # 0.7 10*3/uL (1.4-4.0); Mean Corpuscular HGB Conc 33.9 GM/DL (32-36); Monocytes % 11.5 % (1.7-12.7); Neutrophils % 62.1 % (38.7-73.9); Platelet Count 98 T/CUMM (130-400); Red Blood Count 2.92 MC/CUMM (3.8-5.5); Red Cell Distribution Width 13.5 % (9.3-17.3); White Blood Count 3.2 T/CUMM (4-12)
[2019-06-04 15:18] LABS: INR 0.9; PT Patient Result 10.3 SECS (9.6-12.2)
[2019-06-04 15:28] LABS: Albumin 3.1 G/DL (3.4-5.0); Bilirubin,Total 0.4 MG/DL (0.2-1.0); Calcium 7.4 MG/DL (8.5-10.1); Total Protein 6.3 G/DL (6.4-8.3)
[2019-06-04 15:30] LABS: Troponin I < 0.015 NG/ML (0.00-0.045)
[2019-06-04] MEDS ORDERED: ONDANSETRON 4 MG/2 ML VIAL IV PRN (16:26)
[2019-06-04] MEDS ORDERED: ACETAMINOPHEN 325 MG TABLET PO PRN (16:26)
[2019-06-04] MEDS ORDERED: ENOXAPARIN 30 MG/0.3 ML SYRINGE SUBCUT SCH (21:00)
[2019-06-04] MEDS: POTASSIUM CHLORIDE 20 MEQ TABLET PO PRN (23:29)
[2019-06-05] MEDS: POTASSIUM CHLORIDE 20 MEQ TABLET PO PRN ×3 (01:30→05:46)
[2019-06-05 05:13] LABS: Basophils % 0.8 % (0.0-0.8); Eosinophils # 0.2 10*3/uL (0.0-0.87); Eosinophils % 4.2 % (0.00-10.9); Hematocrit 27.2 VOL% (42.0-52.0); Hemoglobin 9.2 GM/DL (14.0-18.0); Immature Granulocytes % 0.3 %; Immature Granulocytes Absolute 0.01 #; Lymphocytes # 1.3 10*3/uL (1.4-4.0); Lymphocytes % 34.6 % (21.2-54.2); Mean Corpuscular HGB Conc 33.8 GM/DL (32-36); Mean Corpuscular Volume 102.3 FL (87-102); Mean Platelet Volume 11.3 FL (9.6-12.0); Monocytes % 13.7 % (1.7-12.7); Neutrophils % 46.4 % (38.7-73.9); Platelet Count 96 T/CUMM (130-400); Red Blood Count 2.66 MC/CUMM (3.8-5.5); Red Cell Distribution Width 13.7 % (9.3-17.3); White Blood Count 3.8 T/CUMM (4-12)
[2019-06-05 05:41] LABS: Albumin 2.7 G/DL (3.4-5.0); Bilirubin,Total 0.6 MG/DL (0.2-1.0); Calcium 7.3 MG/DL (8.5-10.1); Osmolality,Calculated 285.5 MOS/KG (273-304); Thyroid Stimulating Hormone 0.829 uIU/ml (0.358-3.74); Total Protein 5.9 G/DL (6.4-8.3)
[2019-06-05 05:43] LABS: Band Neutrophils 1 % (0-10); Eosinophils 7 % (0-10); Lymphocytes 39 % (20-55); Platelet Estimate Decreased; Segmented Neutrophils 44 % (50-85); Total Cells Counted 100
[2019-06-05 05:44] LABS: Hypochromasia 1+; Macrocytosis Slight; Stomatocytes Slight
[2019-06-05 05:45] LABS: Target Cells Slight; Tear Drop Cells Slight
[2019-06-05] MEDS ORDERED: PANTOPRAZOLE 40 MG TABLET PO SCH (09:00)
[2019-06-05] MEDS ORDERED: ONDANSETRON 4 MG TABLET PO PRN (09:20)
[2019-06-05] MEDS ORDERED: METOCLOPRAMIDE 5 MG TABLET PO PRN (09:20)
[2019-06-05] MEDS ORDERED: SERTRALINE 25 MG TABLET PO SCH (09:30)
[2019-06-05] MEDS ORDERED: EPOETIN ALFA 10,000 UNIT/1 ML VIAL IV PRN (10:38)
[2019-06-05 12:01] VITALS: BP 116/45
[2019-06-05] MEDS ORDERED: COLESTIPOL 1 GM TABLET PO SCH (21:00)
[2019-06-05] MEDS ORDERED: DONEPEZIL 5 MG TABLET PO SCH (21:00)
[2019-06-05] MEDS ORDERED: TAMSULOSIN 0.4 MG CAPSULE PO SCH (21:00)
[2019-06-05] MEDS ORDERED: MONTELUKAST 10 MG TABLET PO SCH (21:00)
[2019-06-06] MEDS ORDERED: LEVOTHYROXINE 112 MCG TABLET PO SCH (06:00)
[2019-06-06] MEDS ORDERED: THEOPHYLLINE ER (24 HR) 400 MG TABLET PO SCH (09:00)
[2019-06-06] MEDS ORDERED: FINASTERIDE 5 MG TABLET PO SCH (09:00)
[2019-06-06] MEDS ORDERED: CHOLECALCIFEROL 5,000 UNIT TABLET PO SCH (09:00)
== END 2019-06-05 13:30 | disposition home or self-care (01) ==
LOC: EDUNIT# → EDBD → N.EDINP 13:36 → N.ED 13:36 → N.EDINP 17:45 → N.2W 18:27
PROVIDERS: ADMIT Internal Medicine; ATTEND Internal Medicine

== ENCOUNTER 2020-01-07 09:13 | Inpatient (IN) ==
[2020-01-07 10:20] LABS: Basophils % 0.3 % (0.0-0.8); Eosinophils % 0.3 % (0.00-10.9); Hematocrit 28.9 VOL% (42.0-52.0); Hemoglobin 9.7 GM/DL (14.0-18.0); Immature Granulocytes % 0.6 %; Immature Granulocytes Absolute 0.04 #; Lymphocytes # 1.1 10*3/uL (1.4-4.0); Lymphocytes % 15.5 % (21.2-54.2); Mean Corpuscular HGB Conc 33.6 GM/DL (32-36); Mean Corpuscular Volume 105.1 FL (87-102); Monocytes % 12.4 % (1.7-12.7); Neutrophils % 70.9 % (38.7-73.9); Platelet Count 80 T/CUMM (130-400); Red Blood Count 2.75 MC/CUMM (3.8-5.5); Red Cell Distribution Width 14.6 % (9.3-17.3); White Blood Count 6.8 T/CUMM (4-12)
[2020-01-07 10:40] LABS: INR 1.1; PT Patient Result 11.4 SECS (9.8-11.9); Partial Thromboplastin Time 33.3 SECS (23.9-33.8)
[2020-01-07 10:43] LABS: Albumin 3.3 G/DL (3.4-5.0); Bilirubin,Total 0.6 MG/DL (0.2-1.0); Calcium 8.6 MG/DL (8.5-10.1); Osmolality,Calculated 288.7 MOS/KG (273-304); Total Protein 6.6 G/DL (6.4-8.3)
[2020-01-07 11:13] LABS: Anisocytosis 1+; Macrocytosis Slight; Platelet Estimate Decreased
[2020-01-07] MEDS ORDERED: DEXTROSE 50% 25 GM/50 ML VIAL IV PRN (11:54)
[2020-01-07] MEDS ORDERED: GLUCAGON 1 MG VIAL IM PRN (11:54)
[2020-01-07] MEDS: cefTRIAXone 1,000 MG in SYRINGE 1 EACH IV SCH (13:47)
[2020-01-08 06:15] LABS: Basophils % 0.4 % (0.0-0.8); Eosinophils # 0.1 10*3/uL (0.0-0.87); Eosinophils % 0.9 % (0.00-10.9); Hematocrit 28.1 VOL% (42.0-52.0); Hemoglobin 9.3 GM/DL (14.0-18.0); Immature Granulocytes % 0.5 %; Immature Granulocytes Absolute 0.04 #; Lymphocytes # 1.3 10*3/uL (1.4-4.0); Lymphocytes % 16.5 % (21.2-54.2); Mean Corpuscular HGB Conc 33.1 GM/DL (32-36); Mean Corpuscular Volume 105.2 FL (87-102); Mean Platelet Volume 11.8 FL (9.6-12.0); Monocytes % 16.1 % (1.7-12.7); Neutrophils % 65.6 % (38.7-73.9); Platelet Count 84 T/CUMM (130-400); Red Blood Count 2.67 MC/CUMM (3.8-5.5); Red Cell Distribution Width 14.5 % (9.3-17.3); White Blood Count 7.8 T/CUMM (4-12)
[2020-01-08 06:24] LABS: Calcium 8.8 MG/DL (8.5-10.1); Osmolality,Calculated 289.8 MOS/KG (273-304)
[2020-01-08 07:22] LABS: Anisocytosis 2+; Band Neutrophils 3 % (0-10); Lymphocytes 18 % (20-55); Platelet Estimate Decreased; Segmented Neutrophils 62 % (50-85); Total Cells Counted 100
[2020-01-08 07:23] LABS: Macrocytosis 1+
[2020-01-08] MEDS: cefTRIAXone 1,000 MG in SYRINGE 1 EACH IV SCH (12:11)
[2020-01-08] MEDS: AZITHROMYCIN INJ 500 MG in SODIUM CHLORIDE 0.9% 250 ML IV SCH (17:22)
[2020-01-08] MEDS: THEOPHYLLINE ER (24 HR) 400 MG TABLET PO SCH (17:22)
[2020-01-08] MEDS: FINASTERIDE 5 MG TABLET PO SCH (17:22)
[2020-01-08 18:33] LABS: Apearance,Urine CLEAR (Clear); Bacteria,Urine Occasional /HPF (Few); Bilirubin,Urine Negative (Negative); Blood, Urine Small mg/dL (Negative); Glucose,Urine (UA) 50 mg/dL (Negative); Ketones,Urine Negative (Negative); Nitrite,Urine Negative (Negative); Protein,Urine 100 MG/DL; RBC,Urine 1 /HPF (0-4); Squamous Epithelial Cell,Urine Occasional /HPF (0-10); Urine Color Yellow (Yellow); Urine Specific Gravity 1.013 (1.001-1.035); Urine Urobilinogen < 2.0 EU/DL (0.2-1.0); WBC,Urine 5 /HPF (0-6)
[2020-01-08] MEDS: MONTELUKAST 10 MG TABLET PO SCH (21:19)
[2020-01-08] MEDS: FAMOTIDINE 20 MG TABLET PO SCH (21:19)
[2020-01-08] MEDS: TAMSULOSIN 0.4 MG CAPSULE PO SCH (21:20)
[2020-01-08] MEDS: PANTOPRAZOLE 40 MG TABLET PO SCH (21:20)
[2020-01-09 05:56] LABS: Basophils % 0.5 % (0.0-0.8); Eosinophils # 0.1 10*3/uL (0.0-0.87); Eosinophils % 1.3 % (0.00-10.9); Hematocrit 28.1 VOL% (42.0-52.0); Hemoglobin 9.6 GM/DL (14.0-18.0); Immature Granulocytes % 0.3 %; Immature Granulocytes Absolute 0.02 #; Lymphocytes % 15.9 % (21.2-54.2); Mean Corpuscular HGB Conc 34.2 GM/DL (32-36); Mean Corpuscular Volume 101.8 FL (87-102); Mean Platelet Volume 11.6 FL (9.6-12.0); Monocytes % 15.7 % (1.7-12.7); Neutrophils % 66.3 % (38.7-73.9); Red Blood Count 2.76 MC/CUMM (3.8-5.5); Red Cell Distribution Width 14.2 % (9.3-17.3)
[2020-01-09 06:02] LABS: Platelet Count 76 T/CUMM (130-400)
[2020-01-09] MEDS: LEVOTHYROXINE 112 MCG TABLET PO SCH (06:15)
[2020-01-09 06:16] LABS: Eosinophils 2 % (0-10); Hypochromasia 1+; Lymphocytes 14 % (20-55); Platelet Estimate Decreased; Segmented Neutrophils 67 % (50-85); Total Cells Counted 100
[2020-01-09 06:18] LABS: Macrocytosis Slight
[2020-01-09 07:48] LABS: Calcium 8.4 MG/DL (8.5-10.1); Osmolality,Calculated 294.8 MOS/KG (273-304)
[2020-01-09] MEDS: TAMSULOSIN 0.4 MG CAPSULE PO SCH ×2 (08:44→20:52)
[2020-01-09] MEDS: PANTOPRAZOLE 40 MG TABLET PO SCH ×2 (08:44→20:52)
[2020-01-09] MEDS: SERTRALINE 25 MG TABLET PO SCH (08:44)
[2020-01-09] MEDS: THEOPHYLLINE ER (24 HR) 400 MG TABLET PO SCH (08:44)
[2020-01-09] MEDS: FINASTERIDE 5 MG TABLET PO SCH (08:44)
[2020-01-09] MEDS ORDERED: HALOPERIDOL 5 MG/ML AMP IM ONE (12:02)
[2020-01-09] MEDS ORDERED: TUBERCULIN SKIN TEST 0.1 ML SYRINGE INTRADERM ONE (13:02)
[2020-01-09] MEDS: cefTRIAXone 1,000 MG in SYRINGE 1 EACH IV SCH (18:15)
[2020-01-09] MEDS: AZITHROMYCIN INJ 500 MG in SODIUM CHLORIDE 0.9% 250 ML IV SCH (18:19)
[2020-01-09 19:03] LABS: Hepatitis B Core IgM Quant 0.14 Index; Hepatitis B Surface Ab Result Positive; Hepatitis B Surface Ag Quant < 0.10 Index; Hepatitis B Surface Ag Result Negative (Negative)
[2020-01-09] MEDS: MEMANTINE 5 MG TABLET PO SCH (20:52)
[2020-01-09] MEDS: FAMOTIDINE 20 MG TABLET PO SCH (20:52)
[2020-01-09] MEDS: MONTELUKAST 10 MG TABLET PO SCH (20:52)
[2020-01-10 06:07] LABS: Basophils % 0.6 % (0.0-0.8); Eosinophils # 0.1 10*3/uL (0.0-0.87); Eosinophils % 1.5 % (0.00-10.9); Hematocrit 31.2 VOL% (42.0-52.0); Hemoglobin 10.7 GM/DL (14.0-18.0); Immature Granulocytes % 0.4 %; Immature Granulocytes Absolute 0.02 #; Lymphocytes # 0.7 10*3/uL (1.4-4.0); Lymphocytes % 14.3 % (21.2-54.2); Mean Corpuscular HGB Conc 34.3 GM/DL (32-36); Mean Platelet Volume 11.6 FL (9.6-12.0); Monocytes % 17.2 % (1.7-12.7); Red Blood Count 3.06 MC/CUMM (3.8-5.5); Red Cell Distribution Width 13.6 % (9.3-17.3); White Blood Count 5.2 T/CUMM (4-12)
[2020-01-10 06:09] LABS: Platelet Count 93 T/CUMM (130-400)
[2020-01-10] MEDS: LEVOTHYROXINE 112 MCG TABLET PO SCH (06:20)
[2020-01-10 06:25] LABS: Calcium 8.2 MG/DL (8.5-10.1); Osmolality,Calculated 277.1 MOS/KG (273-304)
[2020-01-10 06:42] LABS: Atypical Lymphocytes Few; Band Neutrophils 1 % (0-10); Eosinophils 2 % (0-10); Lymphocytes 18 % (20-55); Segmented Neutrophils 69 % (50-85); Total Cells Counted 100
[2020-01-10 06:43] LABS: Hypochromasia 1+; Macrocytosis 1+; Platelet Estimate Decreased
[2020-01-10] MEDS: THEOPHYLLINE ER (24 HR) 400 MG TABLET PO SCH (09:48)
[2020-01-10] MEDS: FINASTERIDE 5 MG TABLET PO SCH (09:48)
[2020-01-10] MEDS: TAMSULOSIN 0.4 MG CAPSULE PO SCH ×2 (09:48→20:36)
[2020-01-10] MEDS: MEMANTINE 5 MG TABLET PO SCH ×2 (09:49→20:36)
[2020-01-10] MEDS: PANTOPRAZOLE 40 MG TABLET PO SCH ×2 (09:49→20:36)
[2020-01-10] MEDS: SERTRALINE 25 MG TABLET PO SCH (09:49)
[2020-01-10] MEDS: cefTRIAXone 1,000 MG in SYRINGE 1 EACH IV SCH (12:29)
[2020-01-10] MEDS: AZITHROMYCIN INJ 500 MG in SODIUM CHLORIDE 0.9% 250 ML IV SCH (17:06)
[2020-01-10] MEDS: FAMOTIDINE 20 MG TABLET PO SCH (20:36)
[2020-01-10] MEDS: MONTELUKAST 10 MG TABLET PO SCH (20:36)
[2020-01-11] MEDS: LEVOTHYROXINE 112 MCG TABLET PO SCH (05:59)
[2020-01-11 06:04] LABS: Basophils % 0.4 % (0.0-0.8); Eosinophils # 0.1 10*3/uL (0.0-0.87); Eosinophils % 2.3 % (0.00-10.9); Hematocrit 29.6 VOL% (42.0-52.0); Hemoglobin 10.4 GM/DL (14.0-18.0); Immature Granulocytes % 0.6 %; Immature Granulocytes Absolute 0.03 #; Lymphocytes # 0.8 10*3/uL (1.4-4.0); Lymphocytes % 15.7 % (21.2-54.2); Mean Corpuscular HGB Conc 35.1 GM/DL (32-36); Mean Corpuscular Volume 100.3 FL (87-102); Mean Platelet Volume 11.9 FL (9.6-12.0); Monocytes % 16.3 % (1.7-12.7); Neutrophils % 64.7 % (38.7-73.9); Red Blood Count 2.95 MC/CUMM (3.8-5.5); Red Cell Distribution Width 13.5 % (9.3-17.3); White Blood Count 5.3 T/CUMM (4-12)
[2020-01-11 06:05] LABS: Platelet Count 94 T/CUMM (130-400)
[2020-01-11 06:35] LABS: Eosinophils 1 % (0-10); Hypochromasia 1+; Lymphocytes 15 % (20-55); Platelet Estimate Decreased; Segmented Neutrophils 76 % (50-85); Total Cells Counted 100
[2020-01-11 06:36] LABS: Macrocytosis Slight
[2020-01-11 06:38] LABS: Calcium 8.5 MG/DL (8.5-10.1); Osmolality,Calculated 290.5 MOS/KG (273-304)
[2020-01-11] MEDS: SERTRALINE 25 MG TABLET PO SCH (09:16)
[2020-01-11] MEDS: FINASTERIDE 5 MG TABLET PO SCH (09:16)
[2020-01-11] MEDS: MEMANTINE 5 MG TABLET PO SCH ×2 (09:16→20:29)
[2020-01-11] MEDS: TAMSULOSIN 0.4 MG CAPSULE PO SCH ×2 (09:16→20:30)
[2020-01-11] MEDS: THEOPHYLLINE ER (24 HR) 400 MG TABLET PO SCH (09:16)
[2020-01-11] MEDS: PANTOPRAZOLE 40 MG TABLET PO SCH ×2 (09:16→20:29)
[2020-01-11] MEDS: cefTRIAXone 1,000 MG in SYRINGE 1 EACH IV SCH (16:26)
[2020-01-11] MEDS: AZITHROMYCIN INJ 500 MG in SODIUM CHLORIDE 0.9% 250 ML IV SCH (16:26)
[2020-01-11] MEDS: MONTELUKAST 10 MG TABLET PO SCH (20:29)
[2020-01-11] MEDS: FAMOTIDINE 20 MG TABLET PO SCH (20:29)
[2020-01-12] MEDS: LEVOTHYROXINE 112 MCG TABLET PO SCH (06:12)
[2020-01-12 06:14] LABS: Basophils % 0.7 % (0.0-0.8); Eosinophils # 0.2 10*3/uL (0.0-0.87); Eosinophils % 3.6 % (0.00-10.9); Hematocrit 31.4 VOL% (42.0-52.0); Hemoglobin 10.7 GM/DL (14.0-18.0); Immature Granulocytes % 0.5 %; Immature Granulocytes Absolute 0.03 #; Lymphocytes # 1.1 10*3/uL (1.4-4.0); Lymphocytes % 17.1 % (21.2-54.2); Mean Corpuscular HGB Conc 34.1 GM/DL (32-36); Mean Corpuscular Volume 102.6 FL (87-102); Mean Platelet Volume 11.7 FL (9.6-12.0); Monocytes % 13.7 % (1.7-12.7); Neutrophils % 64.4 % (38.7-73.9); Platelet Count 131 T/CUMM (130-400); Red Blood Count 3.06 MC/CUMM (3.8-5.5); Red Cell Distribution Width 13.7 % (9.3-17.3); White Blood Count 6.2 T/CUMM (4-12)
[2020-01-12 06:36] LABS: Calcium 8.9 MG/DL (8.5-10.1); Osmolality,Calculated 283.5 MOS/KG (273-304)
[2020-01-12 06:41] LABS: Hypochromasia Slight; Macrocytosis Slight; Ovalocytes Slight; Platelet Estimate Adequate
[2020-01-12] MEDS: SERTRALINE 25 MG TABLET PO SCH (09:46)
[2020-01-12] MEDS: FINASTERIDE 5 MG TABLET PO SCH (09:46)
[2020-01-12] MEDS: MEMANTINE 5 MG TABLET PO SCH ×2 (09:46→21:12)
[2020-01-12] MEDS: TAMSULOSIN 0.4 MG CAPSULE PO SCH ×2 (09:46→21:12)
[2020-01-12] MEDS: PANTOPRAZOLE 40 MG TABLET PO SCH ×2 (09:46→21:12)
[2020-01-12] MEDS: THEOPHYLLINE ER (24 HR) 400 MG TABLET PO SCH (09:46)
[2020-01-12] MEDS: cefTRIAXone 1,000 MG in SYRINGE 1 EACH IV SCH (13:08)
[2020-01-12] MEDS: AZITHROMYCIN INJ 500 MG in SODIUM CHLORIDE 0.9% 250 ML IV SCH (16:06)
[2020-01-12] MEDS: FAMOTIDINE 20 MG TABLET PO SCH (21:12)
[2020-01-12] MEDS: MONTELUKAST 10 MG TABLET PO SCH (21:12)
[2020-01-13] MEDS: LEVOTHYROXINE 112 MCG TABLET PO SCH (06:10)
[2020-01-13] MEDS: THEOPHYLLINE ER (24 HR) 400 MG TABLET PO SCH (13:07)
[2020-01-13] MEDS: TAMSULOSIN 0.4 MG CAPSULE PO SCH ×2 (13:07→21:18)
[2020-01-13] MEDS: MEMANTINE 5 MG TABLET PO SCH ×2 (13:07→21:18)
[2020-01-13] MEDS: SERTRALINE 25 MG TABLET PO SCH (13:07)
[2020-01-13] MEDS: FINASTERIDE 5 MG TABLET PO SCH (13:07)
[2020-01-13] MEDS: PANTOPRAZOLE 40 MG TABLET PO SCH ×2 (13:07→21:18)
[2020-01-13] MEDS: cefTRIAXone 1,000 MG in SYRINGE 1 EACH IV SCH (13:12)
[2020-01-13] MEDS: MONTELUKAST 10 MG TABLET PO SCH (21:18)
[2020-01-13] MEDS: FAMOTIDINE 20 MG TABLET PO SCH (21:18)
[2020-01-14] MEDS: LEVOTHYROXINE 112 MCG TABLET PO SCH (07:09)
[2020-01-14 07:41] VITALS: BP 112/63
[2020-01-14] MEDS: TAMSULOSIN 0.4 MG CAPSULE PO SCH (08:26)
[2020-01-14] MEDS: THEOPHYLLINE ER (24 HR) 400 MG TABLET PO SCH (08:26)
[2020-01-14] MEDS: FINASTERIDE 5 MG TABLET PO SCH (08:26)
[2020-01-14] MEDS: MEMANTINE 5 MG TABLET PO SCH (08:26)
[2020-01-14] MEDS: PANTOPRAZOLE 40 MG TABLET PO SCH (08:26)
[2020-01-14] MEDS: SERTRALINE 25 MG TABLET PO SCH (08:26)
== END 2020-01-14 11:48 | DRG 56 ==
LOC: N.ED 09:13 → N.EDINP 11:54 → SUATTDRO 11:54 → N.3E 12:35 → N.4E 01-09 10:56
PROVIDERS: ADMIT Hospitalist; ATTEND Internal Medicine

== ENCOUNTER 2021-04-12 13:02 | Inpatient (IN) ==
[2021-04-12] MEDS ORDERED: SODIUM CHLORIDE 0.9% 500 ML IV STA (13:41)
[2021-04-12 14:56] LABS: Basophils % 0.5 % (0.0-0.8); Eosinophils # 0.1 10*3/uL (0.0-0.87); Eosinophils % 3.3 % (0.00-10.9); Hematocrit 25.1 VOL% (42.0-52.0); Hemoglobin 8.2 GM/DL (14.0-18.0); Immature Granulocytes % 0.3 %; Immature Granulocytes Absolute 0.01 #; Lymphocytes # 0.8 10*3/uL (1.4-4.0); Lymphocytes % 19.1 % (21.2-54.2); Mean Corpuscular HGB Conc 32.7 GM/DL (32-36); Mean Corpuscular Volume 107.3 FL (87-102); Mean Platelet Volume 11.2 FL (9.6-12.0); Monocytes % 12.5 % (1.7-12.7); Neutrophils % 64.3 % (38.7-73.9); Platelet Count 77 T/CUMM (130-400); Red Blood Count 2.34 MC/CUMM (3.8-5.5); Red Cell Distribution Width 16.3 % (9.3-17.3); White Blood Count 3.9 T/CUMM (4-12)
[2021-04-12 15:14] LABS: Alanine Aminotransferase 14 U/L (16-61); Albumin 2.7 G/DL (3.4-5.0); Alkaline Phosphatase 90 U/L (45-117); Aspartate Amino Transferase 16 U/L (0-37); Bilirubin,Total < 0.39 MG/DL (0.20-1.00); Blood Urea Nitrogen 44 MG/DL (7-18); Calcium 8.3 MG/DL (8.5-10.1); Carbon Dioxide 29 MMOL/L (21-32); Estimated Glom Filtration Rate 13 ML/MIN; Glucose 93 MG/DL (74-106); Osmolality,Calculated 291.3 MOS/KG (273-304); Potassium 3.2 MMOL/L (3.5-5.1); Sodium 141 MMOL/L (136-145); Total Protein 6.1 G/DL (6.4-8.2)
[2021-04-12] MEDS ORDERED: VANCOMYCIN INJ 1,000 MG in SODIUM CHLORIDE 0.9% 250 ML IV STA (15:49)
[2021-04-12] MEDS ORDERED: cefTRIAXone 1,000 MG in SODIUM CHLORIDE 0.9% 100 ML IV STA (15:49)
[2021-04-12] MEDS ORDERED: AZITHROMYCIN INJ 500 MG in SODIUM CHLORIDE 0.9% 250 ML IV STA (16:17)
[2021-04-12] MEDS ORDERED: ONDANSETRON 4 MG/2 ML VIAL IV PRN (16:18)
[2021-04-12] MEDS ORDERED: GLUCAGON 1 MG VIAL IM PRN (16:18)
[2021-04-12] MEDS ORDERED: ZALEPLON 5 MG CAPSULE PO PRN (16:18)
[2021-04-12] MEDS ORDERED: hydrALAZINE 20 MG/1 ML VIAL IV PRN (16:18)
[2021-04-12] MEDS ORDERED: ACETAMINOPHEN 325 MG TABLET PO PRN (16:18)
[2021-04-12] MEDS ORDERED: DEXTROSE 50% 25 GM/50 ML SYRINGE IV PRN (16:22)
[2021-04-12 16:28] LABS: Target Cells 1+
[2021-04-12 16:29] LABS: Macrocytosis 1+; Ovalocytes Few; Platelet Estimate Adequate; Tear Drop Cells Slight
[2021-04-12] MEDS ORDERED: SODIUM CHLORIDE 0.9% 1,000 ML IV SCH (16:30)
[2021-04-12] MEDS: HEPARIN 5,000 UNIT/1 ML VIAL SUBCUT SCH (18:03)
[2021-04-12] MEDS: ALBUTEROL/IPRATROPIUM 3 ML NEB RESP TX SCH (20:20)
[2021-04-12] MEDS ORDERED: DEXT 5% NACL 0.9% KCL 40 MEQ 40 MEQ/1,000 ML BAG IV SCH (22:30)
[2021-04-13] MEDS: cefTRIAXone 2,000 MG in SODIUM CHLORIDE 0.9% 100 ML IV SCH ×2 (00:21→23:29)
[2021-04-13] MEDS: ALBUTEROL/IPRATROPIUM 3 ML NEB RESP TX SCH ×4 (02:10→19:23)
[2021-04-13 05:08] LABS: Basophils % 0.8 % (0.0-0.8); Eosinophils # 0.1 10*3/uL (0.0-0.87); Eosinophils % 2.8 % (0.00-10.9); Lymphocytes # 0.7 10*3/uL (1.4-4.0); Lymphocytes % 27.7 % (21.2-54.2); Mean Corpuscular HGB Conc 30.6 GM/DL (32-36); Neutrophils % 56.7 % (38.7-73.9); Red Cell Distribution Width 16.2 % (9.3-17.3)
[2021-04-13 05:10] LABS: Hemoglobin 7.4 GM/DL (14.0-18.0); Platelet Count 75 T/CUMM (130-400); Red Blood Count 2.22 MC/CUMM (3.8-5.5); White Blood Count 2.5 T/CUMM (4-12)
[2021-04-13 05:11] LABS: Hematocrit 24.2 VOL% (42.0-52.0)
[2021-04-13 05:24] LABS: Calcium 7.9 MG/DL (8.5-10.1); Osmolality,Calculated 315.8 MOS/KG (273-304)
[2021-04-13 05:28] LABS: Hypochromasia Slight
[2021-04-13 05:29] LABS: Macrocytosis 1+; Ovalocytes Slight; Platelet Estimate Decreased
[2021-04-13 05:33] LABS: Potassium 6.6 MMOL/L (3.5-5.1)
[2021-04-13] MEDS ORDERED: SODIUM POLYSTYRENE SULFATE 15 GM/60 ML BOTTLE PO STA (05:54)
[2021-04-13] MEDS ORDERED: INSULIN REGULAR 10 UNIT, CALCIUM GLUCONATE 1,000 MG in DEXTROSE 10% 250 ML IV STA (05:55)
[2021-04-13] MEDS ORDERED: SODIUM CHLORIDE 0.9% 1,000 ML IV PRN (06:13)
[2021-04-13] MEDS: HEPARIN 5,000 UNIT/1 ML VIAL SUBCUT SCH ×2 (06:23→15:59)
[2021-04-13] MEDS: PANTOPRAZOLE 40 MG TABLET PO SCH (08:55)
[2021-04-13] MEDS: AZITHROMYCIN INJ 500 MG in SODIUM CHLORIDE 0.9% 250 ML IV SCH (08:55)
[2021-04-13 11:39] LABS: Hematocrit 27.5 VOL% (42.0-52.0)
[2021-04-14] MEDS: ALBUTEROL/IPRATROPIUM 3 ML NEB RESP TX SCH ×4 (00:10→20:46)
[2021-04-14] MEDS: HEPARIN 5,000 UNIT/1 ML VIAL SUBCUT SCH ×2 (05:11→17:19)
[2021-04-14 05:21] LABS: Basophils % 0.6 % (0.0-0.8); Eosinophils # 0.1 10*3/uL (0.0-0.87); Eosinophils % 3.4 % (0.00-10.9); Hematocrit 26.1 VOL% (42.0-52.0); Hemoglobin 8.4 GM/DL (14.0-18.0); Immature Granulocytes % 0.6 %; Immature Granulocytes Absolute 0.02 #; Lymphocytes # 0.6 10*3/uL (1.4-4.0); Lymphocytes % 15.7 % (21.2-54.2); Mean Corpuscular HGB Conc 32.2 GM/DL (32-36); Mean Corpuscular Volume 106.1 FL (87-102); Monocytes % 10.8 % (1.7-12.7); Neutrophils % 68.9 % (38.7-73.9); Platelet Count 84 T/CUMM (130-400); Red Blood Count 2.46 MC/CUMM (3.8-5.5); Red Cell Distribution Width 16.1 % (9.3-17.3); White Blood Count 3.5 T/CUMM (4-12)
[2021-04-14 05:40] LABS: Calcium 8.4 MG/DL (8.5-10.1); Osmolality,Calculated 288.1 MOS/KG (273-304); Potassium 3.4 MMOL/L (3.5-5.1)
[2021-04-14 05:57] LABS: Hypochromasia 1+; Microcytosis 1+; Platelet Estimate Decreased
[2021-04-14] MEDS: PANTOPRAZOLE 40 MG TABLET PO SCH (09:35)
[2021-04-14] MEDS: AZITHROMYCIN INJ 500 MG in SODIUM CHLORIDE 0.9% 250 ML IV SCH (09:40)
[2021-04-14] MEDS ORDERED: QUEtiapine 25 MG TABLET PO SCH (11:30)
[2021-04-14] MEDS: QUEtiapine 25 MG TABLET PO SCH ×2 (12:11→21:09)
[2021-04-14] MEDS ORDERED: DONEPEZIL 5 MG TABLET PO SCH (21:00)
[2021-04-14] MEDS: TAMSULOSIN 0.4 MG CAPSULE PO SCH (21:10)
[2021-04-14] MEDS: MONTELUKAST 10 MG TABLET PO SCH (21:10)
[2021-04-14] MEDS: cefTRIAXone 2,000 MG in SODIUM CHLORIDE 0.9% 100 ML IV SCH (23:00)
[2021-04-15] MEDS: ALBUTEROL/IPRATROPIUM 3 ML NEB RESP TX SCH ×4 (01:00→20:30)
[2021-04-15] MEDS: HEPARIN 5,000 UNIT/1 ML VIAL SUBCUT SCH ×2 (05:26→16:42)
[2021-04-15] MEDS: LEVOTHYROXINE 112 MCG TABLET PO SCH (06:17)
[2021-04-15] MEDS: TAMSULOSIN 0.4 MG CAPSULE PO SCH ×2 (09:31→22:22)
[2021-04-15] MEDS: CHOLECALCIFEROL 5,000 UNIT TABLET PO SCH (09:31)
[2021-04-15] MEDS: FINASTERIDE 5 MG TABLET PO SCH (09:31)
[2021-04-15] MEDS: QUEtiapine 25 MG TABLET PO SCH ×2 (09:32→22:22)
[2021-04-15] MEDS: PANTOPRAZOLE 40 MG TABLET PO SCH (09:32)
[2021-04-15] MEDS: AZITHROMYCIN INJ 500 MG in SODIUM CHLORIDE 0.9% 250 ML IV SCH (09:35)
[2021-04-15] MEDS: MONTELUKAST 10 MG TABLET PO SCH (22:22)
[2021-04-15] MEDS: cefTRIAXone 2,000 MG in SODIUM CHLORIDE 0.9% 100 ML IV SCH (22:31)
[2021-04-16] MEDS: ALBUTEROL/IPRATROPIUM 3 ML NEB RESP TX SCH ×2 (00:42→07:35)
[2021-04-16] MEDS: HEPARIN 5,000 UNIT/1 ML VIAL SUBCUT SCH (04:25)
[2021-04-16] MEDS: LEVOTHYROXINE 112 MCG TABLET PO SCH (06:36)
[2021-04-16 06:53] LABS: Basophils % 0.7 % (0.0-0.8); Eosinophils # 0.3 10*3/uL (0.0-0.87); Hematocrit 27.8 VOL% (42.0-52.0); Hemoglobin 9.1 GM/DL (14.0-18.0); Immature Granulocytes % 0.7 %; Immature Granulocytes Absolute 0.02 #; Lymphocytes # 0.7 10*3/uL (1.4-4.0); Lymphocytes % 24.9 % (21.2-54.2); Mean Corpuscular HGB Conc 32.7 GM/DL (32-36); Mean Corpuscular Volume 105.7 FL (87-102); Monocytes % 12.3 % (1.7-12.7); Neutrophils % 52.4 % (38.7-73.9); Platelet Count 86 T/CUMM (130-400); Red Blood Count 2.63 MC/CUMM (3.8-5.5); Red Cell Distribution Width 15.8 % (9.3-17.3); White Blood Count 2.8 T/CUMM (4-12)
[2021-04-16 07:05] LABS: Calcium 8.4 MG/DL (8.5-10.1); Osmolality,Calculated 293.1 MOS/KG (273-304); Potassium 3.7 MMOL/L (3.5-5.1)
[2021-04-16 07:17] LABS: Hypochromasia 1+; Microcytosis 1+; Platelet Estimate Decreased
[2021-04-16 09:31] VITALS: BP 91/62
[2021-04-16] MEDS: TAMSULOSIN 0.4 MG CAPSULE PO SCH (13:21)
[2021-04-16] MEDS: CHOLECALCIFEROL 5,000 UNIT TABLET PO SCH (13:21)
[2021-04-16] MEDS: FINASTERIDE 5 MG TABLET PO SCH (13:21)
[2021-04-16] MEDS: QUEtiapine 25 MG TABLET PO SCH (13:22)
[2021-04-16] MEDS: PANTOPRAZOLE 40 MG TABLET PO SCH (13:22)
[2021-04-16] MEDS: AZITHROMYCIN INJ 500 MG in SODIUM CHLORIDE 0.9% 250 ML IV SCH (14:51)
== END 2021-04-16 15:00 | DRG 70 ==
LOC: EDUNIT# → EDBD → N.ED 13:02 → N.EDINP 16:18 → SUATTDRO 16:18 → N.TELEN 17:26
PROVIDERS: ADMIT Internal Medicine; ATTEND Emergency Medicine

== ENCOUNTER 2021-12-09 11:45 | Inpatient (IN) ==
[2021-12-09 12:14] LABS: Basophils % 0.5 % (0.0-0.8); Eosinophils % 0.7 % (0.00-10.9); Hematocrit 27.3 VOL% (42.0-52.0); Hemoglobin 9.1 GM/DL (14.0-18.0); Immature Granulocytes % 0.5 %; Immature Granulocytes Absolute 0.02 #; Lymphocytes # 0.5 10*3/uL (1.4-4.0); Lymphocytes % 12.4 % (21.2-54.2); Mean Corpuscular HGB Conc 33.3 GM/DL (32-36); Mean Corpuscular Volume 101.1 FL (87-102); Mean Platelet Volume 10.9 FL (9.6-12.0); Monocytes # 0.4 10*3/uL (0.11-0.8); Monocytes % 8.6 % (1.7-12.7); Neutrophils % 77.3 % (38.7-73.9); Platelet Count 89 T/CUMM (130-400); Red Cell Distribution Width 14.9 % (9.3-17.3); White Blood Count 4.3 T/CUMM (4-12)
[2021-12-09 12:24] LABS: PT Patient Result 10.8 SECS (10.5-12.0)
[2021-12-09 12:33] LABS: Albumin 3.1 G/DL (3.4-5.0); Bilirubin,Total 0.4 MG/DL (0.20-1.00); Calcium 9.3 MG/DL (8.5-10.1); Osmolality,Calculated 293.3 MOS/KG (273-304); Potassium 2.8 MMOL/L (3.5-5.1); Total Protein 6.4 G/DL (6.4-8.2)
[2021-12-09 12:42] LABS: Arterial Base Excess iSTAT 2 MMOL/L (-2.5-2.5); Arterial Bicarbonate iSTAT 27.2 MMOL/L (20-26); Arterial O2 Saturation iSTAT 97 % (95-100); Arterial PCO2 iSTAT 43 MM HG (35-48); Arterial PO2 iSTAT 95 MM HG (80-95); Arterial Total CO2 iSTAT 28 MMO/L (23-27); Arterial pH iSTAT 7.412 (7.35-7.45)
[2021-12-09] MEDS ORDERED: VANCOMYCIN INJ 1,000 MG in SODIUM CHLORIDE 0.9% 250 ML IV STA (13:14)
[2021-12-09] MEDS ORDERED: PIPERACILLIN/TAZOBACTAM 3,375 MG in SODIUM CHLORIDE 0.9% 100 ML IV STA (13:14)
[2021-12-09] MEDS ORDERED: SODIUM CHLORIDE 0.9% 500 ML IV STA (13:33)
[2021-12-09] MEDS ORDERED: POTASSIUM CHLORIDE 20 MEQ TABLET PO ONE (14:02)
[2021-12-09] MEDS ORDERED: GLUCAGON 1 MG VIAL IM PRN (14:02)
[2021-12-09] MEDS ORDERED: hydrALAZINE 20 MG/1 ML VIAL IV PRN (14:02)
[2021-12-09 14:06] LABS: Barbiturates Screen,Urine Negative (Negative); Benzodiazepines Screen,Urine Negative (Negative); Cannabinoid Screen,Urine Negative (Negative); Opiate Screen,Urine Negative (Negative); Phencyclidine Screen,Urine Negative (Negative)
[2021-12-09] MEDS ORDERED: DEXTROSE 10% 250 ML BAG IV PRN (14:50)
[2021-12-09] MEDS ORDERED: MAGNESIUM SULF RIDER 2 GM/50 ML PREMIX IV PRN (16:15)
[2021-12-09] MEDS ORDERED: MAGNESIUM SULF RIDER 4 GM/100 ML PREMIX IV PRN (16:15)
[2021-12-09] MEDS: cefTRIAXone 1,000 MG in SODIUM CHLORIDE 0.9% 100 ML IV SCH (17:19)
[2021-12-09] MEDS: AZITHROMYCIN INJ 250 MG in SODIUM CHLORIDE 0.9% 250 ML IV SCH (17:56)
[2021-12-09] MEDS: HEPARIN 5,000 UNIT/1 ML VIAL SUBCUT SCH (18:11)
[2021-12-09] MEDS: ALBUTEROL/IPRATROPIUM 3 ML NEB RESP TX SCH (19:32)
[2021-12-09] MEDS: COLESTIPOL 1 GM TABLET PO SCH (21:19)
[2021-12-09] MEDS: TAMSULOSIN 0.4 MG CAPSULE PO SCH (21:19)
[2021-12-09] MEDS: PANTOPRAZOLE 40 MG TABLET PO SCH (21:19)
[2021-12-09] MEDS: FINASTERIDE 5 MG TABLET PO SCH (21:19)
[2021-12-09] MEDS: MONTELUKAST 10 MG TABLET PO SCH (21:20)
[2021-12-09] MEDS: QUEtiapine 25 MG TABLET PO SCH (21:20)
[2021-12-10] MEDS: ALBUTEROL/IPRATROPIUM 3 ML NEB RESP TX SCH ×5 (00:11→23:27)
[2021-12-10] MEDS: HEPARIN 5,000 UNIT/1 ML VIAL SUBCUT SCH ×4 (01:01→23:50)
[2021-12-10 04:15] LABS: Basophils % 0.2 % (0.0-0.8); Eosinophils % 0.1 % (0.00-10.9); Hematocrit 25.8 VOL% (42.0-52.0); Hemoglobin 8.7 GM/DL (14.0-18.0); Immature Granulocytes % 0.5 %; Immature Granulocytes Absolute 0.05 #; Lymphocytes # 0.6 10*3/uL (1.4-4.0); Lymphocytes % 6.3 % (21.2-54.2); Mean Corpuscular HGB Conc 33.7 GM/DL (32-36); Mean Corpuscular Volume 99.6 FL (87-102); Mean Platelet Volume 10.8 FL (9.6-12.0); Monocytes % 9.6 % (1.7-12.7); Neutrophils % 83.3 % (38.7-73.9); Platelet Count 128 T/CUMM (130-400); Red Blood Count 2.59 MC/CUMM (3.8-5.5); Red Cell Distribution Width 15.2 % (9.3-17.3); White Blood Count 10.1 T/CUMM (4-12)
[2021-12-10 04:41] LABS: Calcium 8.9 MG/DL (8.5-10.1); Thyroid Stimulating Hormone 2.18 uIU/ml (0.358-3.74)
[2021-12-10] MEDS: LEVOTHYROXINE 112 MCG TABLET PO SCH (05:48)
[2021-12-10] MEDS: POTASSIUM CHLORIDE RIDER 10 MEQ/100 ML PREMIX IV PRN (06:43)
[2021-12-10] MEDS ORDERED: ALBUMIN 25% 25 GM/100 ML VIAL IV ONE (10:00)
[2021-12-10] MEDS ORDERED: HEPARIN 10,000 UNIT/10 ML VIAL IV SCH (10:00)
[2021-12-10 17:29] LABS: Bacteria,Urine Occasional /HPF (Few); Glucose,Urine (UA) Negative (Negative); Ketones,Urine Negative (Negative); Nitrite,Urine Negative (Negative); Protein,Urine 100 mg/dL (Negative); Squamous Epithelial Cell,Urine Occasional /HPF (0-10); Urine Appearance Clear (Clear); Urine Color Yellow (Yellow); Urine Specific Gravity 1.015 (1.001-1.035); Urine pH 8.5 (4.5-8.0)
[2021-12-10 17:30] LABS: Bilirubin,Urine Negative (Negative); Blood, Urine Small mg/dL (Negative); Urine Urobilinogen 0.2 eU/dL (<2.0)
[2021-12-10] MEDS: LORazepam 1 MG TABLET PO SCH (17:42)
[2021-12-10] MEDS: COLESTIPOL 1 GM TABLET PO SCH ×2 (17:43→21:05)
[2021-12-10] MEDS: TAMSULOSIN 0.4 MG CAPSULE PO SCH ×2 (17:43→21:05)
[2021-12-10] MEDS: QUEtiapine 25 MG TABLET PO SCH ×2 (17:44→21:06)
[2021-12-10] MEDS: PANTOPRAZOLE 40 MG TABLET PO SCH ×2 (17:44→21:06)
[2021-12-10] MEDS: THEOPHYLLINE ER (24 HR) 400 MG TABLET PO SCH (17:44)
[2021-12-10] MEDS: cefTRIAXone 1,000 MG in SODIUM CHLORIDE 0.9% 100 ML IV SCH (17:59)
[2021-12-10] MEDS: FINASTERIDE 5 MG TABLET PO SCH (21:05)
[2021-12-10] MEDS: MONTELUKAST 10 MG TABLET PO SCH (21:06)
[2021-12-11 04:12] LABS: Basophils % 0.3 % (0.0-0.8); Eosinophils % 0.5 % (0.00-10.9); Hemoglobin 8.2 GM/DL (14.0-18.0); Immature Granulocytes % 0.9 %; Immature Granulocytes Absolute 0.06 #; Lymphocytes # 0.6 10*3/uL (1.4-4.0); Lymphocytes % 10.1 % (21.2-54.2); Mean Corpuscular HGB Conc 32.8 GM/DL (32-36); Mean Corpuscular Volume 102.9 FL (87-102); Mean Platelet Volume 10.9 FL (9.6-12.0); Monocytes % 15.6 % (1.7-12.7); Neutrophils % 72.6 % (38.7-73.9); Platelet Count 104 T/CUMM (130-400); Red Blood Count 2.43 MC/CUMM (3.8-5.5); Red Cell Distribution Width 16.2 % (9.3-17.3); White Blood Count 6.4 T/CUMM (4-12)
[2021-12-11 04:35] LABS: Potassium 3.1 MMOL/L (3.5-5.1)
[2021-12-11 04:37] LABS: Band Neutrophils 1 % (0-10); Lymphocytes 9 % (20-55); Total Cells Counted 100
[2021-12-11 04:38] LABS: Macrocytosis 1+; Platelet Estimate Decreased
[2021-12-11] MEDS: LEVOTHYROXINE 112 MCG TABLET PO SCH (05:58)
[2021-12-11] MEDS: POTASSIUM CHLORIDE RIDER 10 MEQ/100 ML PREMIX IV PRN (06:14)
[2021-12-11] MEDS: ALBUTEROL/IPRATROPIUM 3 ML NEB RESP TX SCH ×3 (07:18→19:44)
[2021-12-11] MEDS: HEPARIN 5,000 UNIT/1 ML VIAL SUBCUT SCH ×3 (08:37→22:19)
[2021-12-11] MEDS ORDERED: ALBUMIN 25% 25 GM/100 ML VIAL IV ONE (09:30)
[2021-12-11] MEDS: TAMSULOSIN 0.4 MG CAPSULE PO SCH ×2 (11:11→20:57)
[2021-12-11] MEDS: LORazepam 1 MG TABLET PO SCH (11:11)
[2021-12-11] MEDS: COLESTIPOL 1 GM TABLET PO SCH ×2 (11:11→20:56)
[2021-12-11] MEDS: PANTOPRAZOLE 40 MG TABLET PO SCH ×2 (11:12→20:57)
[2021-12-11] MEDS: THEOPHYLLINE ER (24 HR) 400 MG TABLET PO SCH (11:12)
[2021-12-11] MEDS: QUEtiapine 25 MG TABLET PO SCH ×2 (11:12→20:57)
[2021-12-11] MEDS: AZITHROMYCIN INJ 250 MG in SODIUM CHLORIDE 0.9% 250 ML IV SCH ×2 (11:14→16:36)
[2021-12-11] MEDS: cefTRIAXone 1,000 MG in SODIUM CHLORIDE 0.9% 100 ML IV SCH ×2 (15:37→15:57)
[2021-12-11] MEDS: FINASTERIDE 5 MG TABLET PO SCH (20:57)
[2021-12-11] MEDS: MONTELUKAST 10 MG TABLET PO SCH (20:57)
[2021-12-11] MEDS: ACETAMINOPHEN 650 MG SUPP RECTAL PRN (22:19)
[2021-12-12] MEDS: ALBUTEROL/IPRATROPIUM 3 ML NEB RESP TX SCH ×4 (01:10→19:46)
[2021-12-12 04:01] LABS: Basophils % 0.4 % (0.0-0.8); Eosinophils % 0.7 % (0.00-10.9); Hematocrit 23.7 VOL% (42.0-52.0); Hemoglobin 7.9 GM/DL (14.0-18.0); Immature Granulocytes % 0.7 %; Immature Granulocytes Absolute 0.04 #; Lymphocytes # 0.8 10*3/uL (1.4-4.0); Lymphocytes % 14.2 % (21.2-54.2); Mean Corpuscular HGB Conc 33.3 GM/DL (32-36); Mean Corpuscular Volume 103.5 FL (87-102); Mean Platelet Volume 11.2 FL (9.6-12.0); Monocytes % 18.5 % (1.7-12.7); Neutrophils % 65.5 % (38.7-73.9); Platelet Count 96 T/CUMM (130-400); Red Blood Count 2.29 MC/CUMM (3.8-5.5); Red Cell Distribution Width 16.9 % (9.3-17.3); White Blood Count 5.6 T/CUMM (4-12)
[2021-12-12 04:15] LABS: Calcium 9.1 MG/DL (8.5-10.1); Osmolality,Calculated 283.1 MOS/KG (273-304); Potassium 3.2 MMOL/L (3.5-5.1)
[2021-12-12 04:24] LABS: Eosinophils 2 % (0-10); Lymphocytes 16 % (20-55); Total Cells Counted 100
[2021-12-12 04:25] LABS: Platelet Estimate Decreased
[2021-12-12] MEDS: LEVOTHYROXINE 112 MCG TABLET PO SCH (05:12)
[2021-12-12] MEDS: HEPARIN 5,000 UNIT/1 ML VIAL SUBCUT SCH ×3 (06:31→22:10)
[2021-12-12] MEDS: TAMSULOSIN 0.4 MG CAPSULE PO SCH ×2 (10:00→20:16)
[2021-12-12] MEDS: LORazepam 1 MG TABLET PO SCH (10:00)
[2021-12-12] MEDS: PANTOPRAZOLE 40 MG TABLET PO SCH ×2 (10:00→20:16)
[2021-12-12] MEDS: COLESTIPOL 1 GM TABLET PO SCH ×2 (10:00→20:16)
[2021-12-12] MEDS: THEOPHYLLINE ER (24 HR) 400 MG TABLET PO SCH (10:01)
[2021-12-12] MEDS: QUEtiapine 25 MG TABLET PO SCH ×2 (10:01→20:17)
[2021-12-12] MEDS: POTASSIUM CHLORIDE RIDER 10 MEQ/100 ML PREMIX IV PRN ×2 (12:21→13:42)
[2021-12-12] MEDS: cefTRIAXone 1,000 MG in SODIUM CHLORIDE 0.9% 100 ML IV SCH (14:34)
[2021-12-12] MEDS: AZITHROMYCIN INJ 250 MG in SODIUM CHLORIDE 0.9% 250 ML IV SCH (17:59)
[2021-12-12] MEDS: FINASTERIDE 5 MG TABLET PO SCH (20:16)
[2021-12-12] MEDS: MONTELUKAST 10 MG TABLET PO SCH (20:17)
[2021-12-13] MEDS: ALBUTEROL/IPRATROPIUM 3 ML NEB RESP TX SCH ×3 (00:02→13:15)
[2021-12-13] MEDS: ACETAMINOPHEN 650 MG SUPP RECTAL PRN (00:54)
[2021-12-13 05:42] LABS: Basophils % 0.2 % (0.0-0.8); Eosinophils # 0.1 10*3/uL (0.0-0.87); Eosinophils % 1.1 % (0.00-10.9); Hematocrit 25.1 VOL% (42.0-52.0); Hemoglobin 8.3 GM/DL (14.0-18.0); Immature Granulocytes % 0.9 %; Immature Granulocytes Absolute 0.05 #; Lymphocytes # 0.7 10*3/uL (1.4-4.0); Lymphocytes % 12.4 % (21.2-54.2); Mean Corpuscular HGB Conc 33.1 GM/DL (32-36); Mean Corpuscular Volume 102.4 FL (87-102); Monocytes # 0.8 10*3/uL (0.11-0.8); Monocytes % 14.8 % (1.7-12.7); Neutrophils % 70.6 % (38.7-73.9); Platelet Count 119 T/CUMM (130-400); Red Blood Count 2.45 MC/CUMM (3.8-5.5); Red Cell Distribution Width 16.8 % (9.3-17.3); White Blood Count 5.3 T/CUMM (4-12)
[2021-12-13 06:01] LABS: Calcium 8.9 MG/DL (8.5-10.1); Potassium 4.4 MMOL/L (3.5-5.1)
[2021-12-13 06:16] LABS: Platelet Estimate Adequate
[2021-12-13] MEDS: LEVOTHYROXINE 112 MCG TABLET PO SCH (06:38)
[2021-12-13] MEDS: HEPARIN 5,000 UNIT/1 ML VIAL SUBCUT SCH (07:02)
[2021-12-13] MEDS: COLESTIPOL 1 GM TABLET PO SCH (10:20)
[2021-12-13] MEDS: LORazepam 1 MG TABLET PO SCH (10:20)
[2021-12-13] MEDS: PANTOPRAZOLE 40 MG TABLET PO SCH (10:21)
[2021-12-13] MEDS: TAMSULOSIN 0.4 MG CAPSULE PO SCH (10:21)
[2021-12-13] MEDS: QUEtiapine 25 MG TABLET PO SCH (10:22)
[2021-12-13] MEDS: THEOPHYLLINE ER (24 HR) 400 MG TABLET PO SCH (10:22)
[2021-12-13 13:57] VITALS: BP 95/50
== END 2021-12-13 15:17 | DRG 177 ==
LOC: N.ED 11:45 → SUATTDRO 14:02 → N.EDINP 14:02 → N.TELEN 15:45
PROVIDERS: ADMIT Internal Medicine; ATTEND Internal Medicine

== ENCOUNTER 2022-04-21 09:34 | Inpatient (IN) ==
[2022-04-21] MEDS ORDERED: SODIUM CHLORIDE 0.9% 250 ML IV STA ×2 (10:08→11:37)
[2022-04-21 10:17] LABS: Basophils % 0.1 % (0.0-0.8); Eosinophils % 0.4 % (0.00-10.9); Hematocrit 29.2 VOL% (42.0-52.0); Hemoglobin 8.9 GM/DL (14.0-18.0); Immature Granulocytes % 0.8 %; Immature Granulocytes Absolute 0.06 #; Lymphocytes # 1.1 10*3/uL (1.4-4.0); Lymphocytes % 14.8 % (21.2-54.2); Mean Corpuscular HGB Conc 30.5 GM/DL (32-36); Mean Corpuscular Volume 96.4 FL (87-102); Mean Platelet Volume 12.3 FL (9.6-12.0); Monocytes # 0.6 10*3/uL (0.11-0.8); Monocytes % 8.4 % (1.7-12.7); Neutrophils % 75.5 % (38.7-73.9); Red Blood Count 3.03 MC/CUMM (3.8-5.5); Red Cell Distribution Width 20.6 % (9.3-17.3); White Blood Count 7.6 T/CUMM (4-12)
[2022-04-21 10:19] LABS: Platelet Count 76 T/CUMM (130-400)
[2022-04-21 10:25] LABS: Albumin 1.9 G/DL (3.4-5.0); Bilirubin,Total 1.1 MG/DL (0.20-1.00); Calcium 8.6 MG/DL (8.5-10.1); Potassium 3.4 MMOL/L (3.5-5.1)
[2022-04-21] MEDS ORDERED: ONDANSETRON 4 MG/2 ML VIAL IV PRN (12:45)
[2022-04-21 12:54] LABS: Prolactin 11.6 ng/mL (2.1-17.7)
[2022-04-21] MEDS: cefTRIAXone 1,000 MG in SODIUM CHLORIDE 0.9% 100 ML IV SCH (14:18)
[2022-04-21] MEDS: ALBUTEROL/IPRATROPIUM 3 ML NEB RESP TX SCH ×2 (16:56→19:35)
[2022-04-21] MEDS: AZITHROMYCIN INJ 500 MG in SODIUM CHLORIDE 0.9% 250 ML IV SCH (19:24)
[2022-04-21] MEDS ORDERED: SODIUM CHLORIDE 0.9% 250 ML IV ONE (21:10)
[2022-04-21] MEDS: MONTELUKAST 10 MG TABLET PO SCH (21:29)
[2022-04-21] MEDS: THEOPHYLLINE ER (24 HR) 400 MG TABLET PO SCH (21:29)
[2022-04-21] MEDS: HEPARIN 5,000 UNIT/1 ML VIAL SUBCUT SCH (21:34)
[2022-04-22] MEDS: ALBUTEROL/IPRATROPIUM 3 ML NEB RESP TX SCH ×4 (01:05→19:18)
[2022-04-22 05:42] LABS: Basophils % 0.2 % (0.0-0.8); Eosinophils % 0.6 % (0.00-10.9); Hematocrit 27.3 VOL% (42.0-52.0); Hemoglobin 8.2 GM/DL (14.0-18.0); Immature Granulocytes % 0.8 %; Immature Granulocytes Absolute 0.04 #; Lymphocytes % 18.6 % (21.2-54.2); Mean Corpuscular Volume 97.5 FL (87-102); Mean Platelet Volume 10.9 FL (9.6-12.0); Monocytes # 0.5 10*3/uL (0.11-0.8); Monocytes % 10.2 % (1.7-12.7); Neutrophils % 69.6 % (38.7-73.9); Platelet Count 68 T/CUMM (130-400); Red Cell Distribution Width 20.2 % (9.3-17.3); White Blood Count 5.1 T/CUMM (4-12)
[2022-04-22 06:00] LABS: Platelet Estimate Decreased
[2022-04-22] MEDS ORDERED: LEVOTHYROXINE 112 MCG TABLET PO SCH (06:00)
[2022-04-22] MEDS: PANTOPRAZOLE 40 MG TABLET PO SCH (11:04)
[2022-04-22] MEDS: HEPARIN 5,000 UNIT/1 ML VIAL SUBCUT SCH ×2 (11:06→21:08)
[2022-04-22] MEDS ORDERED: DEXTROSE 10% 250 ML BAG IV PRN (11:16)
[2022-04-22] MEDS ORDERED: DEXTROSE 10% 250 ML IV ONE (11:17)
[2022-04-22] MEDS ORDERED: SODIUM CHLORIDE 0.9% 100 ML IV ONE ×2 (11:45→12:21)
[2022-04-22] MEDS: HYDROCORTISONE 100 MG VIAL IV SCH ×2 (13:10→21:09)
[2022-04-22] MEDS: NOREPINEPHRINE 8 MG in SODIUM CHLORIDE 0.9% 242 ML IV PRN ×2 (13:10→20:31)
[2022-04-22] MEDS ORDERED: VANCOMYCIN INJ 1,000 MG in SODIUM CHLORIDE 0.9% 250 ML IV ONE (13:26)
[2022-04-22] MEDS: LEVOTHYROXINE 100 MCG VIAL IV SCH (15:30)
[2022-04-22] MEDS: cefTRIAXone 1,000 MG in SODIUM CHLORIDE 0.9% 100 ML IV SCH (15:30)
[2022-04-22] MEDS: AZITHROMYCIN INJ 500 MG in SODIUM CHLORIDE 0.9% 250 ML IV SCH (19:53)
[2022-04-22 20:47] LABS: Basophils % 0.1 % (0.0-0.8); Hematocrit 29.9 VOL% (42.0-52.0); Hemoglobin 8.9 GM/DL (14.0-18.0); Immature Granulocytes % 0.9 %; Immature Granulocytes Absolute 0.13 #; Lymphocytes # 0.4 10*3/uL (1.4-4.0); Lymphocytes % 2.8 % (21.2-54.2); Mean Corpuscular HGB Conc 29.8 GM/DL (32-36); Mean Corpuscular Volume 98.4 FL (87-102); Mean Platelet Volume 10.4 FL (9.6-12.0); Monocytes # 0.6 10*3/uL (0.11-0.8); Monocytes % 3.8 % (1.7-12.7); Neutrophils % 92.4 % (38.7-73.9); Platelet Count 142 T/CUMM (130-400); Red Blood Count 3.04 MC/CUMM (3.8-5.5); Red Cell Distribution Width 20.3 % (9.3-17.3); White Blood Count 14.8 T/CUMM (4-12)
[2022-04-22 21:06] LABS: Albumin 1.8 G/DL (3.4-5.0); Bilirubin,Total 1.1 MG/DL (0.20-1.00); Calcium 7.8 MG/DL (8.5-10.1); Potassium 3.9 MMOL/L (3.5-5.1); Total Protein 5.8 G/DL (6.4-8.2)
[2022-04-22] MEDS: MONTELUKAST 10 MG TABLET PO SCH (21:08)
[2022-04-22] MEDS: THEOPHYLLINE ER (24 HR) 400 MG TABLET PO SCH (21:08)
[2022-04-22 21:10] LABS: Band Neutrophils 2 % (0-10); Lymphocytes 1 % (20-55)
[2022-04-22 21:11] LABS: Hypochromia 1+; Microcytosis Slight; Polychromasia Slight
[2022-04-22 21:12] LABS: Ovalocytes Slight; Platelet Estimate Adequate; Total Cells Counted 100
[2022-04-22] MEDS ORDERED: PHENYLEPHRINE DRIP 40 MG/250 ML PREMIX IV ONE (23:50)
[2022-04-23] MEDS: ALBUTEROL/IPRATROPIUM 3 ML NEB RESP TX SCH ×5 (00:04→23:44)
[2022-04-23] MEDS ORDERED: PHENYLEPHRINE DRIP 40 MG/250 ML PREMIX IV PRN (00:13)
[2022-04-23] MEDS ORDERED: PHENYLEPHRINE IV PRN (01:28)
[2022-04-23] MEDS ORDERED: SODIUM CHLORIDE 0.9% IV PRN (01:28)
[2022-04-23] MEDS: NOREPINEPHRINE 16 MG in SODIUM CHLORIDE 0.9% 234 ML IV PRN ×2 (01:58→14:10)
[2022-04-23] MEDS: HYDROCORTISONE 100 MG VIAL IV SCH ×3 (04:48→21:09)
[2022-04-23 05:31] LABS: Basophils % 0.1 % (0.0-0.8); Hemoglobin 9.2 GM/DL (14.0-18.0); Immature Granulocytes Absolute 0.16 #; Lymphocytes # 0.4 10*3/uL (1.4-4.0); Lymphocytes % 2.4 % (21.2-54.2); Mean Corpuscular HGB Conc 29.7 GM/DL (32-36); Mean Corpuscular Volume 99.4 FL (87-102); Mean Platelet Volume 10.8 FL (9.6-12.0); Monocytes # 0.4 10*3/uL (0.11-0.8); Monocytes % 2.6 % (1.7-12.7); Neutrophils % 93.9 % (38.7-73.9); Platelet Count 175 T/CUMM (130-400); Red Blood Count 3.12 MC/CUMM (3.8-5.5); Red Cell Distribution Width 20.2 % (9.3-17.3); White Blood Count 15.3 T/CUMM (4-12)
[2022-04-23] MEDS: LEVOTHYROXINE 100 MCG VIAL IV SCH (05:37)
[2022-04-23 05:52] LABS: Band Neutrophils 2 % (0-10); Hypochromia 1+; Lymphocytes 1 % (20-55); Total Cells Counted 100
[2022-04-23 05:53] LABS: Macrocytosis 1+; Target Cells Slight
[2022-04-23 05:54] LABS: Calcium 8.2 MG/DL (8.5-10.1); Osmolality,Calculated 291.3 MOS/KG (273-304); Phosphorous 5.2 MG/DL (2.5-4.9); Platelet Estimate Adequate; Potassium 4.1 MMOL/L (3.5-5.1)
[2022-04-23] MEDS: HEPARIN 5,000 UNIT/1 ML VIAL SUBCUT SCH (08:57)
[2022-04-23 10:19] LABS: Hepatitis B Core IgM Quant 0.05 Index; Hepatitis B Surface Ag Quant < 0.10 Index; Hepatitis B Surface Ag Result Non-Reactive (NonReactive); Hepatitis C Virus Ab Quant 0.04 Index; Hepatitis C Virus Ab Result Non-Reactive (NonReactive)
[2022-04-23] MEDS: PANTOPRAZOLE 40 MG TABLET PO SCH (10:21)
[2022-04-23] MEDS ORDERED: KETAMINE 500 MG/10 ML VIAL ONE (11:30)
[2022-04-23] MEDS ORDERED: MIDAZOLAM 2 MG/2 ML VIAL ONE (11:30)
[2022-04-23] MEDS: cefTRIAXone 1,000 MG in SODIUM CHLORIDE 0.9% 100 ML IV SCH (13:34)
[2022-04-23] MEDS: AZITHROMYCIN INJ 500 MG in SODIUM CHLORIDE 0.9% 250 ML IV SCH (14:36)
[2022-04-23] MEDS: MONTELUKAST 10 MG TABLET PO SCH (20:30)
[2022-04-23] MEDS: THEOPHYLLINE ER (24 HR) 400 MG TABLET PO SCH (20:30)
[2022-04-23] MEDS ORDERED: PHENYLEPHRINE INJ 160 MG in SODIUM CHLORIDE 0.9% 234 ML IV PRN (21:30)
[2022-04-24] MEDS: NOREPINEPHRINE 16 MG in SODIUM CHLORIDE 0.9% 234 ML IV PRN (02:51)
[2022-04-24 04:22] LABS: Hematocrit 26.4 VOL% (42.0-52.0); Immature Granulocytes % 0.6 %; Immature Granulocytes Absolute 0.05 #; Lymphocytes # 0.7 10*3/uL (1.4-4.0); Lymphocytes % 9.6 % (21.2-54.2); Mean Corpuscular HGB Conc 30.3 GM/DL (32-36); Mean Corpuscular Volume 98.1 FL (87-102); Mean Platelet Volume 10.2 FL (9.6-12.0); Monocytes # 0.5 10*3/uL (0.11-0.8); Monocytes % 6.2 % (1.7-12.7); Neutrophils % 83.6 % (38.7-73.9); Platelet Count 167 T/CUMM (130-400); Red Blood Count 2.69 MC/CUMM (3.8-5.5); Red Cell Distribution Width 20.1 % (9.3-17.3); White Blood Count 7.7 T/CUMM (4-12)
[2022-04-24 04:39] LABS: Calcium 7.6 MG/DL (8.5-10.1); Osmolality,Calculated 283.5 MOS/KG (273-304); Potassium 3.8 MMOL/L (3.5-5.1)
[2022-04-24] MEDS: LEVOTHYROXINE 100 MCG VIAL IV SCH (05:56)
[2022-04-24] MEDS: HYDROCORTISONE 100 MG VIAL IV SCH ×3 (05:56→20:58)
[2022-04-24] MEDS: ALBUTEROL/IPRATROPIUM 3 ML NEB RESP TX SCH ×3 (07:26→19:00)
[2022-04-24] MEDS: PANTOPRAZOLE 40 MG VIAL IV SCH (09:44)
[2022-04-24] MEDS: cefTRIAXone 1,000 MG in SODIUM CHLORIDE 0.9% 100 ML IV SCH (12:30)
[2022-04-24] MEDS: AZITHROMYCIN INJ 500 MG in SODIUM CHLORIDE 0.9% 250 ML IV SCH (14:06)
[2022-04-24] MEDS: MONTELUKAST 10 MG TABLET PO SCH (20:58)
[2022-04-24] MEDS: THEOPHYLLINE ER (24 HR) 400 MG TABLET PO SCH (20:59)
[2022-04-25] MEDS: HYDROCORTISONE 100 MG VIAL IV SCH ×3 (04:15→20:46)
[2022-04-25 04:31] LABS: Hematocrit 25.9 VOL% (42.0-52.0); Hemoglobin 7.7 GM/DL (14.0-18.0); Immature Granulocytes % 1.1 %; Immature Granulocytes Absolute 0.05 #; Lymphocytes # 0.4 10*3/uL (1.4-4.0); Lymphocytes % 9.1 % (21.2-54.2); Mean Corpuscular HGB Conc 29.7 GM/DL (32-36); Mean Corpuscular Volume 98.9 FL (87-102); Mean Platelet Volume 10.7 FL (9.6-12.0); Monocytes # 0.3 10*3/uL (0.11-0.8); Monocytes % 6.4 % (1.7-12.7); Neutrophils % 83.4 % (38.7-73.9); Platelet Count 139 T/CUMM (130-400); Red Blood Count 2.62 MC/CUMM (3.8-5.5); White Blood Count 4.7 T/CUMM (4-12)
[2022-04-25 04:43] LABS: Calcium 7.6 MG/DL (8.5-10.1); Osmolality,Calculated 296.1 MOS/KG (273-304); Potassium 3.4 MMOL/L (3.5-5.1)
[2022-04-25] MEDS: LEVOTHYROXINE 100 MCG VIAL IV SCH (06:28)
[2022-04-25] MEDS ORDERED: VANCOMYCIN INJ 1,000 MG in SODIUM CHLORIDE 0.9% 250 ML IV SCH (08:00)
[2022-04-25] MEDS: ALBUTEROL/IPRATROPIUM 3 ML NEB RESP TX SCH ×4 (08:07→19:15)
[2022-04-25] MEDS ORDERED: VANCOMYCIN INJ 500 MG in SODIUM CHLORIDE 0.9% 100 ML IV PRN (08:24)
[2022-04-25] MEDS: MULTIVITAMIN (BEROCCA) TABLET PO SCH (08:43)
[2022-04-25] MEDS: HEPARIN 5,000 UNIT/1 ML VIAL SUBCUT SCH ×2 (08:44→20:45)
[2022-04-25] MEDS: PANTOPRAZOLE 40 MG VIAL IV SCH (08:44)
[2022-04-25] MEDS ORDERED: VANCOMYCIN INJ 1,000 MG in SODIUM CHLORIDE 0.9% 250 ML IV ONE (12:00)
[2022-04-25] MEDS ORDERED: ALBUTEROL 2.5 MG/3 ML NEB RESP TX ONE ×2 (13:24→19:09)
[2022-04-25] MEDS: cefTRIAXone 1,000 MG in SODIUM CHLORIDE 0.9% 100 ML IV SCH (13:34)
[2022-04-25] MEDS: AZITHROMYCIN INJ 500 MG in SODIUM CHLORIDE 0.9% 250 ML IV SCH (14:10)
[2022-04-25] MEDS ORDERED: IPRATROPIUM 500 MCG/2.5 ML NEB RESP TX ONE (19:09)
[2022-04-25] MEDS: THEOPHYLLINE ER (24 HR) 400 MG TABLET PO SCH (20:45)
[2022-04-25] MEDS: MONTELUKAST 10 MG TABLET PO SCH (20:46)
[2022-04-26] MEDS ORDERED: IPRATROPIUM 500 MCG/2.5 ML NEB RESP TX ONE ×4 (00:04→19:09)
[2022-04-26] MEDS ORDERED: ALBUTEROL 2.5 MG/3 ML NEB RESP TX ONE ×3 (00:04→19:09)
[2022-04-26] MEDS: ALBUTEROL/IPRATROPIUM 3 ML NEB RESP TX SCH ×4 (00:13→19:17)
[2022-04-26 03:52] LABS: Hematocrit 25.6 VOL% (42.0-52.0); Hemoglobin 7.7 GM/DL (14.0-18.0); Immature Granulocytes % 0.7 %; Immature Granulocytes Absolute 0.03 #; Lymphocytes # 0.3 10*3/uL (1.4-4.0); Lymphocytes % 6.7 % (21.2-54.2); Mean Corpuscular HGB Conc 30.1 GM/DL (32-36); Mean Corpuscular Volume 98.8 FL (87-102); Mean Platelet Volume 11.1 FL (9.6-12.0); Monocytes # 0.2 10*3/uL (0.11-0.8); Monocytes % 3.6 % (1.7-12.7); Platelet Count 131 T/CUMM (130-400); Red Blood Count 2.59 MC/CUMM (3.8-5.5); Red Cell Distribution Width 19.5 % (9.3-17.3); White Blood Count 4.5 T/CUMM (4-12)
[2022-04-26 03:59] LABS: Calcium 7.9 MG/DL (8.5-10.1); Osmolality,Calculated 289.4 MOS/KG (273-304); Potassium 3.3 MMOL/L (3.5-5.1)
[2022-04-26] MEDS: LEVOTHYROXINE 100 MCG VIAL IV SCH (05:31)
[2022-04-26] MEDS: HYDROCORTISONE 100 MG VIAL IV SCH ×3 (05:31→20:35)
[2022-04-26] MEDS: HEPARIN 5,000 UNIT/1 ML VIAL SUBCUT SCH ×2 (08:02→20:35)
[2022-04-26] MEDS: MULTIVITAMIN (BEROCCA) TABLET PO SCH (08:02)
[2022-04-26] MEDS: PANTOPRAZOLE 40 MG VIAL IV SCH (08:02)
[2022-04-26] MEDS ORDERED: POTASSIUM PHOSPHATE 15 MMOL in SODIUM CHLORIDE 0.9% 100 ML IV ONE (09:00)
[2022-04-26] MEDS: cefTRIAXone 1,000 MG in SODIUM CHLORIDE 0.9% 100 ML IV SCH (12:58)
[2022-04-26] MEDS: MONTELUKAST 10 MG TABLET PO SCH (20:34)
[2022-04-26] MEDS: THEOPHYLLINE ER (24 HR) 400 MG TABLET PO SCH (20:34)
[2022-04-27] MEDS: ALBUTEROL/IPRATROPIUM 3 ML NEB RESP TX SCH ×5 (00:46→23:48)
[2022-04-27 03:45] LABS: Hemoglobin 7.6 GM/DL (14.0-18.0); Immature Granulocytes % 1.1 %; Immature Granulocytes Absolute 0.08 #; Lymphocytes # 0.5 10*3/uL (1.4-4.0); Lymphocytes % 6.8 % (21.2-54.2); Mean Corpuscular HGB Conc 30.4 GM/DL (32-36); Mean Corpuscular Volume 96.5 FL (87-102); Mean Platelet Volume 10.8 FL (9.6-12.0); Monocytes # 0.4 10*3/uL (0.11-0.8); Monocytes % 5.6 % (1.7-12.7); Neutrophils % 86.5 % (38.7-73.9); Platelet Count 187 T/CUMM (130-400); Red Blood Count 2.59 MC/CUMM (3.8-5.5); Red Cell Distribution Width 19.3 % (9.3-17.3); White Blood Count 7.5 T/CUMM (4-12)
[2022-04-27 04:05] LABS: Calcium 7.7 MG/DL (8.5-10.1); Osmolality,Calculated 296.5 MOS/KG (273-304); Potassium 3.8 MMOL/L (3.5-5.1)
[2022-04-27] MEDS: NOREPINEPHRINE 16 MG in SODIUM CHLORIDE 0.9% 234 ML IV PRN (05:08)
[2022-04-27] MEDS: HYDROCORTISONE 100 MG VIAL IV SCH ×3 (05:35→20:13)
[2022-04-27] MEDS: LEVOTHYROXINE 100 MCG VIAL IV SCH (05:35)
[2022-04-27] MEDS ORDERED: ALBUTEROL 2.5 MG/3 ML NEB RESP TX ONE ×2 (07:39→15:21)
[2022-04-27] MEDS ORDERED: POTASSIUM PHOSPHATE 30 MMOL in SODIUM CHLORIDE 0.9% 250 ML IV ONE (09:00)
[2022-04-27] MEDS: PANTOPRAZOLE 40 MG VIAL IV SCH (09:31)
[2022-04-27] MEDS: MULTIVITAMIN (BEROCCA) TABLET PO SCH (09:31)
[2022-04-27] MEDS: MIDODRINE 5 MG TABLET PO SCH ×2 (09:31→20:13)
[2022-04-27] MEDS: HEPARIN 5,000 UNIT/1 ML VIAL SUBCUT SCH (09:35)
[2022-04-27] MEDS: APIXABAN 2.5 MG TABLET PO SCH ×2 (12:24→20:13)
[2022-04-27] MEDS: INSULIN LISPRO 100 UNIT/ML SUBCUT SCH ×3 (12:57→23:47)
[2022-04-27] MEDS: MONTELUKAST 10 MG TABLET PO SCH (20:13)
[2022-04-27] MEDS: THEOPHYLLINE ER (24 HR) 400 MG TABLET PO SCH (20:14)
[2022-04-27] MEDS ORDERED: ALBUTEROL 1.25 MG/3 ML NEB RESP TX ONE (23:36)
[2022-04-28 04:44] LABS: Hemoglobin 7.7 GM/DL (14.0-18.0); Immature Granulocytes % 2.3 %; Immature Granulocytes Absolute 0.12 #; Lymphocytes # 0.8 10*3/uL (1.4-4.0); Lymphocytes % 15.6 % (21.2-54.2); Mean Corpuscular HGB Conc 30.8 GM/DL (32-36); Mean Corpuscular Volume 95.1 FL (87-102); Mean Platelet Volume 10.9 FL (9.6-12.0); Monocytes # 0.5 10*3/uL (0.11-0.8); Monocytes % 10.2 % (1.7-12.7); Neutrophils % 71.9 % (38.7-73.9); Platelet Count 149 T/CUMM (130-400); Red Blood Count 2.63 MC/CUMM (3.8-5.5); White Blood Count 5.2 T/CUMM (4-12)
[2022-04-28 04:58] LABS: Calcium 7.5 MG/DL (8.5-10.1); Osmolality,Calculated 300.3 MOS/KG (273-304); Potassium 4.9 MMOL/L (3.5-5.1)
[2022-04-28] MEDS: HYDROCORTISONE 100 MG VIAL IV SCH ×3 (05:28→21:15)
[2022-04-28] MEDS: INSULIN LISPRO 100 UNIT/ML SUBCUT SCH ×3 (05:28→18:33)
[2022-04-28] MEDS: LEVOTHYROXINE 100 MCG VIAL IV SCH (05:42)
[2022-04-28] MEDS: ALBUTEROL/IPRATROPIUM 3 ML NEB RESP TX SCH ×2 (07:03→12:22)
[2022-04-28] MEDS: MIDODRINE 5 MG TABLET PO SCH ×2 (08:58→21:15)
[2022-04-28] MEDS: MULTIVITAMIN (BEROCCA) TABLET PO SCH (08:58)
[2022-04-28] MEDS: APIXABAN 2.5 MG TABLET PO SCH ×2 (08:58→21:15)
[2022-04-28] MEDS: PANTOPRAZOLE 40 MG VIAL IV SCH (08:59)
[2022-04-28] MEDS ORDERED: ALBUMIN 25% 25 GM/100 ML VIAL IV ONE (10:30)
[2022-04-28] MEDS: IPRATROPIUM 500 MCG/2.5 ML NEB RESP TX SCH ×2 (14:34→23:00)
[2022-04-28] MEDS: LEVALBUTEROL 1.25 MG/3 ML NEB RESP TX SCH ×2 (14:35→23:10)
[2022-04-28] MEDS ORDERED: VANCOMYCIN INJ 500 MG in SODIUM CHLORIDE 0.9% 100 ML IV ONE (17:00)
[2022-04-28] MEDS ORDERED: THEOPHYLLINE ER (24 HR) 400 MG CAPSULE PO SCH (21:00)
[2022-04-28] MEDS: MONTELUKAST 10 MG TABLET PO SCH (21:15)
[2022-04-28] MEDS ORDERED: THEOPHYLLINE 5.33 MG/ML 30 ML/BOTTLE PO SCH (21:30)
[2022-04-28] MEDS: THEOPHYLLINE 5.33 MG/ML 30 ML/BOTTLE PO SCH (21:59)
[2022-04-29] MEDS: INSULIN LISPRO 100 UNIT/ML SUBCUT SCH ×5 (00:06→23:53)
[2022-04-29 03:37] LABS: Hematocrit 25.2 VOL% (42.0-52.0); Hemoglobin 7.6 GM/DL (14.0-18.0); Immature Granulocytes % 1.6 %; Immature Granulocytes Absolute 0.11 #; Lymphocytes # 0.4 10*3/uL (1.4-4.0); Lymphocytes % 6.3 % (21.2-54.2); Mean Corpuscular HGB Conc 30.2 GM/DL (32-36); Mean Corpuscular Volume 99.2 FL (87-102); Monocytes # 0.3 10*3/uL (0.11-0.8); Monocytes % 4.8 % (1.7-12.7); Neutrophils % 87.3 % (38.7-73.9); Platelet Count 151 T/CUMM (130-400); Red Blood Count 2.54 MC/CUMM (3.8-5.5); Red Cell Distribution Width 19.5 % (9.3-17.3); White Blood Count 6.9 T/CUMM (4-12)
[2022-04-29 03:55] LABS: Calcium 7.6 MG/DL (8.5-10.1); Osmolality,Calculated 290.7 MOS/KG (273-304)
[2022-04-29] MEDS: THEOPHYLLINE 5.33 MG/ML 30 ML/BOTTLE PO SCH ×4 (04:13→21:07)
[2022-04-29] MEDS: HYDROCORTISONE 100 MG VIAL IV SCH ×3 (04:14→21:05)
[2022-04-29] MEDS: LEVOTHYROXINE 100 MCG VIAL IV SCH (05:51)
[2022-04-29] MEDS: LEVALBUTEROL 1.25 MG/3 ML NEB RESP TX SCH ×3 (06:50→23:00)
[2022-04-29] MEDS: IPRATROPIUM 500 MCG/2.5 ML NEB RESP TX SCH ×3 (06:50→23:00)
[2022-04-29] MEDS: PANTOPRAZOLE 40 MG VIAL IV SCH (09:05)
[2022-04-29] MEDS: MULTIVITAMIN (BEROCCA) TABLET PO SCH (09:05)
[2022-04-29] MEDS: MIDODRINE 5 MG TABLET PO SCH ×2 (09:05→21:07)
[2022-04-29] MEDS: APIXABAN 2.5 MG TABLET PO SCH ×2 (09:05→21:07)
[2022-04-29] MEDS: PIPERACILLIN/TAZOBACTAM 3,375 MG in SODIUM CHLORIDE 0.9% 100 ML IV SCH ×2 (09:23→17:17)
[2022-04-29] MEDS: NOREPINEPHRINE 16 MG in SODIUM CHLORIDE 0.9% 234 ML IV PRN (20:19)
[2022-04-29] MEDS: MONTELUKAST 10 MG TABLET PO SCH (21:07)
[2022-04-30] MEDS: PIPERACILLIN/TAZOBACTAM 3,375 MG in SODIUM CHLORIDE 0.9% 100 ML IV SCH ×3 (01:16→16:40)
[2022-04-30 03:30] LABS: Basophils % 0.1 % (0.0-0.8); Hematocrit 26.6 VOL% (42.0-52.0); Hemoglobin 7.8 GM/DL (14.0-18.0); Immature Granulocytes % 1.4 %; Immature Granulocytes Absolute 0.12 #; Lymphocytes # 0.6 10*3/uL (1.4-4.0); Lymphocytes % 6.4 % (21.2-54.2); Mean Corpuscular HGB Conc 29.3 GM/DL (32-36); Mean Corpuscular Volume 100.4 FL (87-102); Mean Platelet Volume 10.9 FL (9.6-12.0); Monocytes # 0.6 10*3/uL (0.11-0.8); Monocytes % 7.2 % (1.7-12.7); Neutrophils % 84.9 % (38.7-73.9); Platelet Count 176 T/CUMM (130-400); Red Blood Count 2.65 MC/CUMM (3.8-5.5); Red Cell Distribution Width 20.4 % (9.3-17.3); White Blood Count 8.9 T/CUMM (4-12)
[2022-04-30 03:49] LABS: Calcium 7.9 MG/DL (8.5-10.1); Osmolality,Calculated 300.5 MOS/KG (273-304); Potassium 4.4 MMOL/L (3.5-5.1)
[2022-04-30] MEDS: HYDROCORTISONE 100 MG VIAL IV SCH ×2 (04:29→17:55)
[2022-04-30] MEDS: THEOPHYLLINE 5.33 MG/ML 30 ML/BOTTLE PO SCH ×4 (04:29→21:06)
[2022-04-30] MEDS: LEVOTHYROXINE 100 MCG VIAL IV SCH (05:57)
[2022-04-30] MEDS: INSULIN LISPRO 100 UNIT/ML SUBCUT SCH ×4 (05:59→23:51)
[2022-04-30] MEDS: IPRATROPIUM 500 MCG/2.5 ML NEB RESP TX SCH ×3 (07:34→23:29)
[2022-04-30] MEDS: LEVALBUTEROL 1.25 MG/3 ML NEB RESP TX SCH ×3 (07:34→23:29)
[2022-04-30] MEDS: PANTOPRAZOLE 40 MG VIAL IV SCH (09:10)
[2022-04-30] MEDS: MIDODRINE 5 MG TABLET PO SCH ×2 (09:15→20:39)
[2022-04-30] MEDS: APIXABAN 2.5 MG TABLET PO SCH ×2 (09:15→20:39)
[2022-04-30] MEDS: MULTIVITAMIN (BEROCCA) TABLET PO SCH (10:40)
[2022-04-30] MEDS: MONTELUKAST 10 MG TABLET PO SCH (20:39)
[2022-05-01] MEDS: PIPERACILLIN/TAZOBACTAM 3,375 MG in SODIUM CHLORIDE 0.9% 100 ML IV SCH ×3 (00:01→16:20)
[2022-05-01] MEDS: NOREPINEPHRINE 16 MG in SODIUM CHLORIDE 0.9% 234 ML IV PRN (03:09)
[2022-05-01] MEDS: THEOPHYLLINE 5.33 MG/ML 30 ML/BOTTLE PO SCH ×4 (03:10→21:44)
[2022-05-01 04:17] LABS: Eosinophils % 0.1 % (0.00-10.9); Hematocrit 24.9 VOL% (42.0-52.0); Hemoglobin 7.6 GM/DL (14.0-18.0); Immature Granulocytes % 1.5 %; Lymphocytes # 0.7 10*3/uL (1.4-4.0); Lymphocytes % 8.9 % (21.2-54.2); Mean Corpuscular HGB Conc 30.5 GM/DL (32-36); Mean Corpuscular Volume 99.2 FL (87-102); Mean Platelet Volume 11.3 FL (9.6-12.0); Monocytes % 15.4 % (1.7-12.7); Neutrophils % 74.1 % (38.7-73.9); Platelet Count 138 T/CUMM (130-400); Red Blood Count 2.51 MC/CUMM (3.8-5.5); Red Cell Distribution Width 20.3 % (9.3-17.3); White Blood Count 7.9 T/CUMM (4-12)
[2022-05-01 04:18] LABS: Immature Granulocytes Absolute 0.12 #; Monocytes # 1.2 10*3/uL (0.11-0.8)
[2022-05-01 04:42] LABS: Osmolality,Calculated 305.5 MOS/KG (273-304); Potassium 4.3 MMOL/L (3.5-5.1)
[2022-05-01 04:43] LABS: Phosphorous 3.2 MG/DL (2.5-4.9)
[2022-05-01] MEDS: LEVOTHYROXINE 100 MCG VIAL IV SCH (05:48)
[2022-05-01] MEDS: HYDROCORTISONE 100 MG VIAL IV SCH ×2 (05:54→18:10)
[2022-05-01] MEDS: INSULIN LISPRO 100 UNIT/ML SUBCUT SCH ×3 (05:56→18:10)
[2022-05-01] MEDS: LEVALBUTEROL 1.25 MG/3 ML NEB RESP TX SCH ×3 (07:25→23:59)
[2022-05-01] MEDS: IPRATROPIUM 500 MCG/2.5 ML NEB RESP TX SCH ×3 (07:25→23:59)
[2022-05-01] MEDS: MULTIVITAMIN (BEROCCA) TABLET PO SCH (09:00)
[2022-05-01] MEDS: PANTOPRAZOLE 40 MG VIAL IV SCH (09:00)
[2022-05-01] MEDS: MIDODRINE 5 MG TABLET PO SCH ×2 (09:05→21:44)
[2022-05-01] MEDS: APIXABAN 2.5 MG TABLET PO SCH ×2 (09:05→21:44)
[2022-05-01 18:58] VITALS: BP 118/54
[2022-05-01] MEDS: MONTELUKAST 10 MG TABLET PO SCH (21:44)
[2022-05-02] MEDS: INSULIN LISPRO 100 UNIT/ML SUBCUT SCH ×3 (00:45→11:35)
[2022-05-02] MEDS: PIPERACILLIN/TAZOBACTAM 3,375 MG in SODIUM CHLORIDE 0.9% 100 ML IV SCH ×2 (01:40→09:10)
[2022-05-02] MEDS: THEOPHYLLINE 5.33 MG/ML 30 ML/BOTTLE PO SCH ×2 (04:00→09:10)
[2022-05-02] MEDS: HYDROCORTISONE 100 MG VIAL IV SCH (05:45)
[2022-05-02] MEDS: LEVOTHYROXINE 100 MCG VIAL IV SCH (05:48)
[2022-05-02] MEDS: IPRATROPIUM 500 MCG/2.5 ML NEB RESP TX SCH (06:50)
[2022-05-02] MEDS: LEVALBUTEROL 1.25 MG/3 ML NEB RESP TX SCH (06:50)
[2022-05-02] MEDS: MIDODRINE 5 MG TABLET PO SCH (09:10)
[2022-05-02] MEDS: MULTIVITAMIN (BEROCCA) TABLET PO SCH (09:10)
[2022-05-02] MEDS: PANTOPRAZOLE 40 MG VIAL IV SCH (09:10)
[2022-05-02] MEDS: APIXABAN 2.5 MG TABLET PO SCH (09:10)
[2022-05-02] MEDS: NOREPINEPHRINE 16 MG in SODIUM CHLORIDE 0.9% 234 ML IV PRN (10:39)
== END 2022-05-02 11:48 | disposition hospice, inpatient (51) | DRG 853 ==
LOC: N.EDINP 09:34 → N.ED 09:34 → SUATTDRO 12:44 → N.5E 16:09 → SUATTDRO 04-22 11:32 → N.ICU 04-22 13:07
PROVIDERS: ADMIT Internal Medicine; ATTEND Family Medicine

== ENCOUNTER 2022-05-02 11:43 | Inpatient (IN) ==
[2022-05-02] MEDS ORDERED: LORazepam 1 MG TABLET PO PRN (13:00)
[2022-05-02] MEDS ORDERED: NOREPINEPHRINE DRIP 8 MG/250 ML PREMIX IV PRN (13:03)
[2022-05-02] MEDS ORDERED: NOREPINEPHRINE 16 MG in SODIUM CHLORIDE 0.9% 234 ML IV PRN (13:21)
[2022-05-03] MEDS: MORPHINE 2 MG/1 ML SYRINGE IV PRN ×11 (16:55→23:38)
[2022-05-03] MEDS: LORazepam 2 MG/1 ML VIAL IV PRN ×2 (21:49→22:44)
[2022-05-04] MEDS: MORPHINE 2 MG/1 ML SYRINGE IV PRN ×14 (00:07→05:45)
[2022-05-04] MEDS: LORazepam 2 MG/1 ML VIAL IV PRN ×7 (02:03→05:46)
[2022-05-04] MEDS ORDERED: POTASSIUM BICARB EFFERVESCENT 20 MEQ TAB.EFF PER TUBE PRN (06:26)
[2022-05-05] MEDS: MORPHINE 2 MG/1 ML SYRINGE IV PRN ×11 (09:16→23:42)
[2022-05-06] MEDS: MORPHINE 2 MG/1 ML SYRINGE IV PRN ×9 (00:31→18:34)
[2022-05-06] MEDS: LORazepam 2 MG/1 ML VIAL IV PRN ×2 (01:47→07:24)
[2022-05-07] MEDS: MORPHINE 2 MG/1 ML SYRINGE IV PRN ×10 (01:42→22:20)
[2022-05-07] MEDS ORDERED: fentaNYL 25 MCG/HR PATCH TRANSDERM SCH (17:00)
[2022-05-08] MEDS: MORPHINE 2 MG/1 ML SYRINGE IV PRN ×4 (00:56→07:44)
[2022-05-08 07:54] VITALS: BP 83/35
[2022-05-08] MEDS ORDERED: HYDROmorphone 1 MG/1 ML SYRINGE SUBCUT PRN (09:15)
[2022-05-08] MEDS ORDERED: LORazepam 2 MG/1 ML VIAL IM PRN (09:16)
== END 2022-05-08 10:40 | DRG 951 ==
LOC: N.ICU 11:43 → SUATTDRO 11:43 → N.3E 05-04 18:37
PROVIDERS: ADMIT Family Medicine; ATTEND Hospitalist